=== PATIENT | male | born 1970 | race American Indian/Alaskan Native ===

== ENCOUNTER 2021-08-05 11:55 | Observation (INO) | payer SELFPAY ==
--- NOTE | 2021-08-05 12:08 | Emergency Department Report ---
ED General Adult HPI - General Chief complaint: Medical Clearance Stated complaint: DIALYSIS PORT NOT WORKING PUI?: No Time Seen by Provider: 08/05/21 12:02 Source: patient, EMS Mode of arrival: Stretcher Limitations: No Limitations - History of Present Illness Initial comments: Chief complaint: Catheter not working HPI: This is a 50-year-old male with history of hypertension, end-stage renal disease on hemodialysis Tuesday, CVA, diabetes mellitus who presents to the ED from dialysis clinic. Permacath malfunctioning. Otherwise he has been in his normal state of health. Denies any pain or discomfort. He receives dialysis at [facility] on [facility]. His dry can tender is Dr. Sparrow -: Gradual, This morning Severity scale (0 -10): 0 Consistency: constant Improves with: none Worsens with: none Associated Symptoms: denies other symptoms Treatments Prior to Arrival: other (Attempted dialysis treatment, EMS transport to the ED) - Related Data Home Medications Medication Instructions Recorded Confirmed Last Taken Pravastatin Sodium [Pravastatin] 05/19/13 05/19/13 Unknown cloNIDine [Catapres] 05/19/13 05/19/13 Unknown Previous Rx's Medication Instructions Recorded Last Taken Type Aspirin 325 mg PO QDAY #30 tablet 05/23/13 Unknown Rx Gabapentin 100 mg PO Q8HR #30 capsule 05/23/13 Unknown Rx Hum Insulin NPH/Reg Insulin Hm 20 unit SQ BID #10 ml 05/23/13 Unknown Rx [Humulin 70-30 Pen] Metoprolol [Lopressor TAB] 100 mg PO BID #60 tablet 05/23/13 Unknown Rx NIFEdipine XL [Procardia Xl] 60 mg PO Q12HR #60 tablet 05/23/13 Unknown Rx Allergies Allergy/AdvReac Type Severity Reaction Status Date / Time No Known Allergies Allergy Verified 08/05/21 11:58 ED Review of Systems ROS: Stated complaint: DIALYSIS PORT NOT WORKING Other details as noted in HPI Comment: All other systems reviewed and negative Constitutional: denies: chills, fever, malaise Respiratory: denies: cough, shortness of breath Cardiovascular: denies: chest pain Gastrointestinal: denies: abdominal pain, nausea, vomiting ED Past Medical Hx - Past Medical History Previous Medical History?: Yes Hx Hypertension: Yes Hx Diabetes: Yes Hx Liver Disease: No Hx Renal Disease: Yes Additional medical history: high chol - Surgical History Past Surgical History?: Yes Additional Surgical History: Right chest permacath present - Family History Family history: diabetes, hypertension - Social History Smoking Status: Never Smoker Substance Use Type: None - Medications Home Medications: Home Medications Medication Instructions Recorded Confirmed Last Taken Type Pravastatin Sodium [Pravastatin] 05/19/13 05/19/13 Unknown History cloNIDine [Catapres] 05/19/13 05/19/13 Unknown History Aspirin 325 mg PO QDAY #30 tablet 05/23/13 Unknown Rx Gabapentin 100 mg PO Q8HR #30 capsule 05/23/13 Unknown Rx Hum Insulin NPH/Reg Insulin Hm 20 unit SQ BID #10 ml 05/23/13 Unknown Rx [Humulin 70-30 Pen] Metoprolol [Lopressor TAB] 100 mg PO BID #60 tablet 05/23/13 Unknown Rx NIFEdipine XL [Procardia Xl] 60 mg PO Q12HR #60 tablet 05/23/13 Unknown Rx ED Physical Exam - General Limitations: No Limitations General appearance: alert, in no apparent distress - Head Head exam: Present: atraumatic, normocephalic - Eye Eye exam: Present: normal appearance - ENT ENT exam: Present: mucous membranes moist - Neck Neck exam: Present: normal inspection, full ROM - Respiratory Respiratory exam: Present: normal lung sounds bilaterally, other (Right chest permacath bandage intact no erythema no drainage). Absent: respiratory distress, wheezes, rales, rhonchi - Cardiovascular Cardiovascular Exam: Present: regular rate, normal rhythm, normal heart sounds. Absent: systolic murmur, diastolic murmur, rubs, gallop - GI/Abdominal GI/Abdominal exam: Present: soft, normal bowel sounds. Absent: distended, tenderness, guarding, rebound - Rectal Rectal exam: Present: deferred - Extremities Exam Extremities exam: Present: normal inspection - Neurological Exam Neurological exam: Present: alert, oriented X3 - Psychiatric Psychiatric exam: Present: normal affect, normal mood - Skin Skin exam: Present: warm, dry, intact, normal color. Absent: rash ED Course Vital Signs 08/05/21 11:56 Temperature 98 F Pulse Rate 91 H Blood Pressure 186/89 [Left] O2 Sat by Pulse 16 L Oximetry ED Medical Decision Making - Lab Data Result diagrams: 08/05/21 12:24 08/05/21 12:24 - Medical Decision Making I discussed case with Jammie nurse practitioner for nephrology group she recommended admission for hemodialysis vascular access replacement Critical care attestation.: If time is entered above; I have spent that time in minutes in the direct care of this critically ill patient, excluding procedure time. ED Disposition Clinical Impression: End stage renal disease on dialysis, Problem with dialysis access Disposition: ADMITTED INPATIENT Is pt being admited?: Yes Does the pt Need Aspirin: No Condition: Stable
[2021-08-05 12:41] LABS: Basophils % (Auto) 0.7 % (0.0-1.8); Eosinophils # (Auto) 0.2 K/mm3 (0.0-0.4); Eosinophils % (Auto) 2.7 % (0.0-4.3); Hematocrit 29.4 % (35.5-45.6); Hemoglobin 9.5 gm/dl (11.8-15.2); Lymphocytes # (Auto) 0.5 K/mm3 (1.2-5.4); Lymphocytes % (Auto) 9.8 % (13.4-35.0); Mean Corpuscular HGB Conc 32 % (32-34); Mean Corpuscular Volume 83 fl (84-94); Monocytes # (Auto) 0.4 K/mm3 (0.0-0.8); Monocytes % (Auto) 7.1 % (0.0-7.3); Platelet Count 204 K/mm3 (140-440); Red Blood Count 3.52 M/mm3 (3.65-5.03); Red Cell Distribution Width 14.9 % (13.2-15.2)
[2021-08-05 12:55] LABS: INR 0.96 (0.87-1.13); Partial Thromboplastin Time 43.6 Sec. (24.2-36.6)
[2021-08-05 14:51] LABS: Calcium 9.1 mg/dL (8.4-10.2)
--- NOTE | 2021-08-05 15:22 | Consultation ---
History of Present Illness - Reason for Consult Consult date: 08/05/21 end stage renal disease - History of Present Illness This is a 50 year old man who presents with dialysis access malfunction. Patient usually dialyzes MWF at [facility]. Last HD 08/03. Denies any recent issues with HD, including dizziness, lightheadedness, cramping, chest pain on HD. Has been having sluggish flow per reports due to CVC issues. Went to HD today but unable to start HD due to CVC malfunction Currently, patient denies any issues including dyspnea, edema, access issues, nausea, vomiting, headaches. Past History Past Medical History: ESRD Past Surgical History: No surgical history Social history: no significant social history Family history: no significant family history Medications and Allergies Allergies Allergy/AdvReac Type Severity Reaction Status Date / Time No Known Allergies Allergy Verified 08/05/21 11:58 Home Medications Medication Instructions Recorded Confirmed Last Taken Type Pravastatin Sodium [Pravastatin] 05/19/13 05/19/13 Unknown History cloNIDine [Catapres] 05/19/13 05/19/13 Unknown History Aspirin 325 mg PO QDAY #30 tablet 05/23/13 Unknown Rx Gabapentin 100 mg PO Q8HR #30 capsule 05/23/13 Unknown Rx Hum Insulin NPH/Reg Insulin Hm 20 unit SQ BID #10 ml 05/23/13 Unknown Rx [Humulin 70-30 Pen] Metoprolol [Lopressor TAB] 100 mg PO BID #60 tablet 05/23/13 Unknown Rx NIFEdipine XL [Procardia Xl] 60 mg PO Q12HR #60 tablet 05/23/13 Unknown Rx Review of Systems All systems: negative (as per HPI) Exam - Vital Signs Vital signs: Vital Signs Temp Pulse BP Pulse Ox 98 F 91 H 186/89 16 L 08/05/21 11:56 08/05/21 11:56 08/05/21 11:56 08/05/21 11:56 - Physical Exam Narrative exam: Constitutional: no acute distress Head: NC/AT Neck: supple Lungs: clear to auscultation CV: RRR, no M/R/G Abdomen: soft, non-tender, bowel sounds present Back: nontender Extremities: no edema, pulses WNL Skin: intact Neuro: no focal deficits, alert and oriented x4 Results - Lab Results 08/05/21 12:24 08/05/21 12:24 Most recent lab results Calcium 9.1 mg/dL (8.4-10.2) 08/05/21 12:24 Assessment and Plan This is a 50 year old man who presents with CVC malfunction # ESRD: HD after CVC replacement, no emergent indication for HD noted per labs, volume status - daily labs - renally dose meds - avoid nephrotoxins - renal diet - verbal consent obtained for HD # CVC Malfunction: appreciate vascular assistance # Anemia: last hemoglobin 9.5 # HTN: UF as tolerated. BP high but improving # Secondary Hyperparathyroidism: continue home binders as needed, vitamin D analogs prn
[2021-08-05] MEDS ORDERED: MORPHINE 2 MG/1 ML INJ IV PRN (21:21)
[2021-08-05] MEDS ORDERED: ONDANSETRON 4 MG/2 ML INJ IV PRN (21:21)
[2021-08-05] MEDS ORDERED: oxyCODONE /ACETAMINOPHEN 5-325MG TAB PO PRN (21:21)
[2021-08-05] MEDS ORDERED: ACETAMINOPHEN 325 MG TAB PO PRN (21:21)
--- NOTE | 2021-08-05 21:21 | History and Physical Report ---
History of Present Illness Date of examination: 08/05/21 Date of admission: 08/05/2021 Chief complaint: Permacath malfunction History of present illness: 50-year-old F male with history of hypertension and recently started on hemodialysis about 2 weeks ago comes in for malfunction of his permacath. Patient is due for hemodialysis on Wednesdays and Fridays. Patient also has diabetes. Patient was sent here for exchange of permacath because of his malfunction. Otherwise patient is asymptomatic. No increasing shortness of breath. No chest pain. No fever or chills. - Past Medical History --Previous Medical History?: Yes --Hypertension: Yes --Diabetes: Yes --Renal Disease: Yes --Additional medical history: high chol - Surgical History --Past Surgical History?: Yes --Additional Surgical History: Right chest permacath present - Family History --Family history: diabetes, hypertension - Social History --Smoking Status: Never Smoker --Substance Use Type: None - Medications --Home Medications: Home Medications Medication Instructions Recorded Confirmed Last Taken Type Pravastatin Sodium [Pravastatin] 05/19/13 05/19/13 Unknown History cloNIDine [Catapres] 05/19/13 05/19/13 Unknown History Aspirin 325 mg PO QDAY #30 tablet 05/23/13 Unknown Rx Gabapentin 100 mg PO Q8HR #30 capsule 05/23/13 Unknown Rx Hum Insulin NPH/Reg Insulin Hm 20 unit SQ BID #10 ml 05/23/13 Unknown Rx [Humulin 70-30 Pen] Metoprolol [Lopressor TAB] 100 mg PO BID #60 tablet 05/23/13 Unknown Rx NIFEdipine XL [Procardia Xl] 60 mg PO Q12HR #60 tablet 05/23/13 Unknown Rx Review of Systems ROS: Stated complaint: DIALYSIS PORT NOT WORKING Other details as noted in HPI Comment: All other systems reviewed and negative Constitutional: denies: chills, fever, malaise Respiratory: denies: cough, shortness of breath Cardiovascular: denies: chest pain Gastrointestinal: denies: abdominal pain, nausea, vomiting Medications and Allergies Allergies Allergy/AdvReac Type Severity Reaction Status Date / Time No Known Allergies Allergy Verified 08/05/21 11:58 Home Medications Medication Instructions Recorded Confirmed Last Taken Type Pravastatin Sodium [Pravastatin] 40 mg PO HS 05/19/13 08/06/21 Unknown History cloNIDine [Catapres] 0.2 mg PO BID 05/19/13 08/06/21 Unknown History Aspirin 325 mg PO QDAY #30 tablet 05/23/13 08/06/21 Unknown Rx Gabapentin 100 mg PO Q8HR #30 capsule 05/23/13 08/06/21 Unknown Rx Hum Insulin NPH/Reg Insulin Hm 20 unit SQ BID #10 ml 05/23/13 08/06/21 Unknown Rx [Humulin 70-30 Pen] Metoprolol [Lopressor TAB] 100 mg PO BID #60 tablet 05/23/13 08/06/21 Unknown Rx NIFEdipine XL [Procardia Xl] 60 mg PO Q12HR #60 tablet 05/23/13 08/06/21 Unknown Rx Exam - Constitutional Vitals: Temp Pulse Resp BP Pulse Ox 98 F 91 H 157/90 100 08/05/21 11:56 08/05/21 11:56 08/05/21 18:31 08/05/21 18:31 General appearance: Present: no acute distress, well-nourished - EENT Eyes: Present: PERRL ENT: hearing intact, clear oral mucosa - Neck Neck: Present: supple, normal ROM - Respiratory Respiratory effort: normal Respiratory: bilateral: CTA - Cardiovascular Heart rate: 78 Rhythm: regular Heart Sounds: Present: S1 & S2. Absent: rub, click - Extremities Extremities: pulses symmetrical, No edema Peripheral Pulses: within normal limits - Abdominal General gastrointestinal: Present: soft, non-tender, non-distended, normal bowel sounds Male genitourinary: Present: normal - Integumentary Integumentary: Present: clear, warm, dry - Musculoskeletal Musculoskeletal: gait normal, strength equal bilaterally - Psychiatric Psychiatric: appropriate mood/affect, intact judgment & insight - Neurologic Neurologic: CNII-XII intact, moves all extremities Results - Labs CBC & Chem 7: 08/05/21 12:24 08/06/21 06:42 Labs: Laboratory Last Values WBC 5.5 K/mm3 (4.5-11.0) 08/05/21 12:24 RBC 3.52 M/mm3 (3.65-5.03) L 08/05/21 12:24 Hgb 9.5 gm/dl (11.8-15.2) L 08/05/21 12:24 Hct 29.4 % (35.5-45.6) L 08/05/21 12:24 MCV 83 fl (84-94) L 08/05/21 12:24 MCH 27 pg (28-32) L 08/05/21 12:24 MCHC 32 % (32-34) 08/05/21 12:24 RDW 14.9 % (13.2-15.2) 08/05/21 12:24 Plt Count 204 K/mm3 (140-440) 08/05/21 12:24 Lymph % (Auto) 9.8 % (13.4-35.0) L 08/05/21 12:24 Beckham % (Auto) 7.1 % (0.0-7.3) 08/05/21 12:24 Eos % (Auto) 2.7 % (0.0-4.3) 08/05/21 12: Baso % (Auto) 0.7 % (0.0-1.8) 08/05/21 12:24 Lymph # (Auto) 0.5 K/mm3 (1.2-5.4) L 08/05/21 12:24 Beckham # (Auto) 0.4 K/mm3 (0.0-0.8) 08/05/21 12:24 Eos # (Auto) 0.2 K/mm3 (0.0-0.4) 08/05/21 12: Baso # (Auto) 0.0 K/mm3 (0.0-0.1) 08/05/21 12:24 Seg Neutrophils % 79.7 % (40.0-70.0) H 08/05/21 12:24 Seg Neutrophils # 4.4 K/mm3 (1.8-7.7) 08/05/21 12:24 PT 10.0 Sec. (12.2-14.9) L 08/05/21 12:24 INR 0.96 (0.87-1.13) 08/05/21 12:24 APTT 43.6 Sec. (24.2-36.6) H 08/05/21 12:24 Sodium 139 mmol/L (137-145) 08/05/21 12:24 Potassium 4.3 mmol/L (3.6-5.0) 08/05/21 12:24 Chloride 103.0 mmol/L (98-107) 08/05/21 12:24 Carbon Dioxide 22 mmol/L (22-30) 08/05/21 12:24 Anion Gap 18 mmol/L 08/05/21 12:24 BUN 60 mg/dL (9-20) H 08/05/21 12:24 Creatinine 5.0 mg/dL (0.8-1.3) H 08/05/21 12:24 Estimated GFR 15 ml/min 08/05/21 12:24 BUN/Creatinine Ratio 12 % 08/05/21 12:24 Glucose 167 mg/dL (75-100) H 08/05/21 12:24 Calcium 9.1 mg/dL (8.4-10.2) 08/05/21 12:24 Assessment and Plan Advance Directives: Yes (Full code) VTE prophylaxis?: Chemical Plan of care discussed with patient/family: Yes - Patient Problems (1) Problem with dialysis access Current Visit: Yes Status: Acute Qualifiers: Encounter type: initial encounter Qualified Code(s): T82.898A - Other specified complication of vascular prosthetic devices, implants and grafts, initial encounter Plan to address problem: Permacath to be replaced Malfunctioning permacath Vascular surgery consulted Nephrology consulted (2) End stage renal disease on dialysis Current Visit: Yes Status: Chronic Plan to address problem: Continue hemodialysis as per schedule after the permacath was replaced Nephrology consulted (3) Hypertension Current Visit: Yes Status: Chronic Qualifiers: Hypertension type: primary hypertension Qualified Code(s): I10 - Essential (primary) hypertension Plan to address problem: Continue antihypertensives and adjust medications (4) IDDM (insulin dependent diabetes mellitus) Current Visit: Yes Status: Chronic Plan to address problem: Continue oral home insulin and coverage Check hemoglobin A1c (5) DVT prophylaxis Current Visit: Yes Status: Acute Plan to address problem: 1 heparin and GI prophylaxis (6) Advance care planning Current Visit: Yes Status: Acute Plan to address problem: Disease education conducted, care plan discussed, diagnosis discussed, prognosis discussed. Patient is full code. Patient acknowledged understanding and agreement with care plan. +30 minutes.
[2021-08-05] MEDS ORDERED: REG INSULIN SQ SCH (22:00)
[2021-08-05] MEDS ORDERED: HUM INSULIN NPH SQ SCH (22:00)
[2021-08-05] MEDS: GABAPENTIN 100 MG CAP PO SCH (23:09)
[2021-08-05] MEDS: METOPROLOL TARTRATE 100 MG TAB PO SCH (23:09)
[2021-08-05] MEDS: cloNIDine 0.2 MG TAB PO SCH (23:09)
[2021-08-05] MEDS: ASPIRIN 325 MG TAB PO SCH (23:10)
[2021-08-05] MEDS: HEPARIN 5,000 UNIT/1 ML VIAL SUB-Q SCH (23:10)
[2021-08-05] MEDS: PRAVASTATIN 40 MG TAB PO SCH (23:10)
[2021-08-06] MEDS: NIFEdipine XL 60 MG TAB PO SCH ×2 (05:07→19:44)
[2021-08-06] MEDS: GABAPENTIN 100 MG CAP PO SCH ×2 (05:07→14:01)
[2021-08-06] MEDS: cloNIDine 0.2 MG TAB PO SCH ×2 (05:09→14:01)
[2021-08-06] MEDS ORDERED: HEPARIN/NS 5000 UNIT/500ML 1,000 ML IR ONE (08:27)
[2021-08-06] MEDS ORDERED: HEPARIN 10,000 UNITS/10 ML VIAL ONE (08:27)
[2021-08-06] MEDS ORDERED: LIDOCAINE (1%) 10 MG/1 ML VIAL 20 ML MDV ONE (08:27)
[2021-08-06] MEDS ORDERED: ceFAZolin/Water 2 GM/20 ML 2 GM/20 ML SYRINGE IV ONE (08:27)
[2021-08-06] MEDS ORDERED: MIDAZOLAM 2 MG/2 ML INJ ONE (08:28)
[2021-08-06] MEDS ORDERED: fentaNYL 100 MCG/2 ML INJ ONE (08:28)
[2021-08-06] MEDS ORDERED: SODIUM CHLORIDE 0.9% 250ML 250 ML ONE (08:50)
[2021-08-06] MEDS ORDERED: HEPARIN/NS 5000 UNIT/500ML 500 ML IR ONE (09:20)
--- NOTE | 2021-08-06 09:25 | Operative Report ---
Operative Report Operative Report: Exam: Fluoroscopic guided exchange of tunneled hemodialysis catheter, central venogram, Clinical indication: Patient with a history of end-stage renal disease on hemodialysis through a right chest wall tunneled hemodialysis catheter, catheter not working in outpatient setting Date: 08/06/2021 Procedure: Following an explanation of the risk, benefits and alternatives; written informed consent was obtained. The patient was brought to the angiographic suite placed in supine position on the examination table. Initial fluoroscopic images of the chest demonstrated an indwelling tunneled hemodialysis catheter that appears to terminate at the cavoatrial junction. The patient's right chest wall was prepped and draped in the usual sterile fashion. 2% lidocaine was used for anesthesia. Attempts to aspirate either port were unsuccessful. A 0.035 guidewire was then advanced through the indwelling catheter and under fluoroscopy advanced to the IVC to document intravenous positioning and for anchoring. The catheter was then removed intact. A 10 Norwegian sheath was then advanced over the guidewire and contrast injected through the 10 Norwegian sheath. This demonstrated the soft tissue track and visualized portions of the superior vena cava appear to be patent however, there was poor visualization of the distal superior vena cava and a 5 Norwegian vertebral catheter was then advanced through the sheath through the soft tissue tract. Contrast was injected through the vertebral catheter. This demonstrates no significant fibrin sheath. It appears that the catheter had been withdrawn proximally causing occlusion secondary to tissue adjacent to the aspiration ports. A new Bard glidepath 23 cm glidepath tunneled hemodialysis catheter was then advanced over the guidewire under fluoroscopy and positioned with the tip in the proximal right atrium. The guidewire and trocar were removed. Both ports flushed and aspirated easily and were then locked with appropriate volumes of heparin. The catheter exit site was approximated using 2-0 Ethilon suture which was also used to anchor the catheter. Dermabond was also applied. A sterile dressing was applied. The patient tolerated the procedure well. There were no immediate post procedure complications. Conscious sedation was performed under the guidance of radiologic nursing. Continuous cardiopulmonary monitoring was utilized. Impression: 1) Fluoroscopic guided exchange of tunneled hemodialysis catheter with placement of the tip of the catheter at the proximal right atrium. 2) Central venogram demonstrating no significant fibrin sheath.
--- NOTE | 2021-08-06 09:28 | Consultation ---
History of Present Illness - Reason for Consult Consult date: 08/06/21 Malfunctioning dialysis catheter - History of Present Illness Patient with a history of end-stage renal disease on hemodialysis through a right chest wall tunneled hemodialysis catheter that stopped functioning yesterday during dialysis. The patient subsequently presented to the emergency department. He has no other significant complaints of any pain. Past History Past Medical History: dialysis, ESRD Past Surgical History: No surgical history Social history: no significant social history Family history: no significant family history Medications and Allergies Allergies Allergy/AdvReac Type Severity Reaction Status Date / Time No Known Allergies Allergy Verified 08/05/21 11:58 Home Medications Medication Instructions Recorded Confirmed Last Taken Type Pravastatin Sodium [Pravastatin] 40 mg PO HS 05/19/13 08/06/21 Unknown History cloNIDine [Catapres] 0.2 mg PO BID 05/19/13 08/06/21 Unknown History Aspirin 325 mg PO QDAY #30 tablet 05/23/13 08/06/21 Unknown Rx Gabapentin 100 mg PO Q8HR #30 capsule 05/23/13 08/06/21 Unknown Rx Hum Insulin NPH/Reg Insulin Hm 20 unit SQ BID #10 ml 05/23/13 08/06/21 Unknown Rx [Humulin 70-30 Pen] Metoprolol [Lopressor TAB] 100 mg PO BID #60 tablet 05/23/13 08/06/21 Unknown Rx NIFEdipine XL [Procardia Xl] 60 mg PO Q12HR #60 tablet 05/23/13 08/06/21 Unknown Rx Active Meds: Active Medications Acetaminophen (Acetaminophen 325 Mg Tab) 650 mg PO Q4H PRN PRN Reason: Pain MILD(1-3)/Fever >100.5/JUAN Aspirin (Aspirin 325 Mg Tab) 325 mg PO QDAY [facility] Last Admin: 08/05/21 23:10 Dose: 325 mg Clonidine HCl (Clonidine 0.2 Mg Tab) 0.2 mg PO Q8H [facility] Last Admin: 08/06/21 05:09 Dose: 0.2 mg Gabapentin (Gabapentin 100 Mg Cap) 100 mg PO Q8HR [facility] Last Admin: 08/06/21 05:07 Dose: 100 mg Heparin Sodium (Porcine) (Heparin 5,000 Unit/1 Ml Vial) 5,000 unit SUB-Q Q12HR [facility] Last Admin: 08/05/21 23:10 Dose: 5,000 unit Insulin Human Isoph/Insulin Regular (Insulin Nph/Regular 70/30 Inj) 20 unit SUB-Q BIDDIAB [facility] Insulin Human Lispro (Insulin Lispro 100 Unit/Ml) 0 unit SUB-Q ACHS [facility]; Protocol Metoprolol Tartrate (Metoprolol Tartrate 100 Mg Tab) 100 mg PO BID [facility] Last Admin: 08/05/21 23:09 Dose: 100 mg Morphine Sulfate (Morphine 2 Mg/1 Ml Inj) 2 mg IV Q4H PRN PRN Reason: Pain, Moderate (4-6) Nifedipine (Nifedipine Xl 60 Mg Tab) 60 mg PO Q12H [facility] Last Admin: 08/06/21 05:07 Dose: 60 mg Ondansetron HCl (Ondansetron 4 Mg/2 Ml Inj) 4 mg IV Q8H PRN PRN Reason: Nausea And Vomiting Oxycodone/Acetaminophen (Oxycodone /Acetaminophen 5-325mg Tab) 1 tab PO Q6H PRN PRN Reason: Pain, Moderate (4-6) Pravastatin Sodium (Pravastatin 40 Mg Tab) 40 mg PO QDAY [facility] Last Admin: 08/05/21 23:10 Dose: 40 mg Sodium Chloride (Sodium Chloride 0.9% 10 Ml Flush Syringe) 10 ml IV BID [facility] Last Admin: 08/05/21 23:38 Dose: 10 ml Sodium Chloride (Sodium Chloride 0.9% 10 Ml Flush Syringe) 10 ml IV PRN PRN PRN Reason: LINE FLUSH Review of Systems All systems: negative Exam - Constitutional Vitals: Temp Pulse Resp BP Pulse Ox 98.1 F 86 18 165/94 93 08/06/21 04:33 08/06/21 05:09 08/06/21 04:33 08/06/21 05:09 08/06/21 04:33 General appearance: Present: no acute distress - EENT Eyes: Present: EOM intact ENT: hearing intact - Neck Neck: Present: supple, normal ROM - Respiratory Respiratory effort: normal - Abdominal General gastrointestinal: Present: deferred Male genitourinary: Present: deferred - Rectal Rectal Exam: deferred - Psychiatric Psychiatric: appropriate mood/affect, cooperative Results - Labs CBC & Chem 7: 08/05/21 12:24 08/06/21 06:42 Labs: Abnormal lab results 08/05/21 08/05/21 08/05/21 Range/Units 12:24 12:24 12:24 RBC 3.52 L (3.65-5.03) M/mm3 Hgb 9.5 L (11.8-15.2) gm/dl Hct 29.4 L (35.5-45.6) % MCV 83 L (84-94) fl MCH 27 L (28-32) pg Lymph % (Auto) 9.8 L (13.4-35.0) % Lymph # (Auto) 0.5 L (1.2-5.4) K/mm3 Seg Neutrophils % 79.7 H (40.0-70.0) % PT 10.0 L (12.2-14.9) Sec. APTT 43.6 H (24.2-36.6) Sec. BUN 60 H (9-20) mg/dL Creatinine 5.0 H (0.8-1.3) mg/dL Glucose 167 H (75-100) mg/dL POC Glucose (70-105) mg/dL 08/06/21 08/06/21 Range/Units 06:42 07:41 RBC (3.65-5.03) M/mm3 Hgb (11.8-15.2) gm/dl Hct (35.5-45.6) % MCV (84-94) fl MCH (28-32) pg Lymph % (Auto) (13.4-35.0) % Lymph # (Auto) (1.2-5.4) K/mm3 Seg Neutrophils % (40.0-70.0) % PT (12.2-14.9) Sec. APTT (24.2-36.6) Sec. BUN 64 H (9-20) mg/dL Creatinine 5.3 H (0.8-1.3) mg/dL Glucose 170 H (75-100) mg/dL POC Glucose 151 H (70-105) mg/dL Assessment and Plan Plan to take patient to [facility] today for exchange and evaluation of patient's indwelling tunneled hemodialysis catheter. The patient will ultimately once he acquires insurance will require creation of longer access per nephrology.
--- NOTE | 2021-08-06 09:38 | Event Note ---
Date: 08/06/21 Patient in lab tester at time of rounds. Labs, vitals reviewed. Patient can return to HD unit tomorrow at [facility] for usual HD (I will be rounding there tomorrow and see patient there), no need to remain inpatient for dialysis after CVC replaced. If there are any clinical concerns however, please call me at [phone]
[2021-08-06] MEDS: ASPIRIN 325 MG TAB PO SCH (10:00)
[2021-08-06] MEDS: PRAVASTATIN 40 MG TAB PO SCH (10:00)
[2021-08-06] MEDS: HEPARIN 5,000 UNIT/1 ML VIAL SUB-Q SCH (10:00)
[2021-08-06] MEDS: METOPROLOL TARTRATE 100 MG TAB PO SCH (10:01)
[2021-08-06] MEDS: INSULIN NPH/REGULAR 70/30 INJ SUB-Q SCH ×2 (10:35→19:44)
[2021-08-06] MEDS: INSULIN LISPRO 100 UNIT/ML SUB-Q SCH ×2 (13:57→18:17)
[2021-08-06 18:43] VITALS: BP 156/81
--- NOTE | 2021-08-06 20:09 | Discharge Summary ---
Providers - Providers Date of Admission: 08/05/21 21:21 Date of discharge: 08/06/21 Attending physician: ALESSIA TURK 08/05/21 14:23 Consult to Physician [CONS] Stat Comment: Consulting Provider: RYLEE OLIVER Physician Instructions: Reason For Exam: ESRD 08/05/21 15:04 Consult to Physician [CONS] Stat Comment: Consulting Provider: BAYLEE DOOLEY Physician Instructions: Reason For Exam: permacath exchange Primary care physician: GEODETIC SURVEYOR Hospitalization Condition: Stable Hospital course: History of present illness: 50-year-old F male with history of hypertension and recently started on hemodialysis about 2 weeks ago comes in for malfunction of his permacath. Patient is due for hemodialysis on Wednesdays and Fridays. Patient also has diabetes. Patient was sent here for exchange of permacath because of his malfunction. Otherwise patient is asymptomatic. No increasing shortness of breath. No chest pain. No fever or chills. Assessment and Plan Advance Directives: Yes (Full code) VTE prophylaxis?: Chemical Plan of care discussed with patient/family: Yes - Patient Problems (1) Problem with dialysis access Current Visit: Yes Status: Acute Permacath replaced by Dr. Thom Corbett ready for hemodialysis (2) End stage renal disease on dialysis Current Visit: Yes Status: Chronic Plan to address problem: Patient to go to [facility] tomorrow for hemodialysis (3) Hypertension Current Visit: Yes Status: Chronic Qualifiers: Hypertension type: primary hypertension Qualified Code(s): I10 - Essential (primary) hypertension Plan to address problem: Blood pressure well controlled (4) IDDM (insulin dependent diabetes mellitus) Current Visit: Yes Status: Chronic Plan to address problem: Blood glucose levels are reasonable (5) DVT prophylaxis Current Visit: Yes Status: Acute Plan to address problem: 1 heparin and GI prophylaxis (6) Advance care planning Current Visit: Yes Status: Acute Plan to address problem: Disease education conducted, care plan discussed, diagnosis discussed, prognosis discussed. Patient is full code. Patient acknowledged understanding and agreement with care plan. +30 minutes. Disposition: HOME / SELF CARE / HOMELESS Final Discharge Diagnosis (Prints w/discharge instructions): Permacath malfunction. End-stage renal disease on hemodialysis. Hypertension. Insulin- dependent diabetes. Obesity Time spent for discharge: 35 minutes - Discharge Diagnoses (1) Problem with dialysis access Status: Acute Qualifiers: Encounter type: initial encounter Qualified Code(s): T82.898A - Other specified complication of vascular prosthetic devices, implants and grafts, initial encounter (2) End stage renal disease on dialysis Status: Chronic (3) Hypertension Status: Chronic Qualifiers: Hypertension type: primary hypertension Qualified Code(s): I10 - Essential (primary) hypertension (4) IDDM (insulin dependent diabetes mellitus) Status: Chronic (5) DVT prophylaxis Status: Acute (6) Advance care planning Status: Acute Core Measure Documentation - Palliative Care Palliative Care/ Comfort Measures: Not Applicable - Core Measures Any of the following diagnoses?: none Exam - Constitutional Vitals: Temp Pulse Resp BP Pulse Ox 97.2 F L 69 18 156/81 95 08/06/21 17:29 08/06/21 17:29 08/06/21 17:29 08/06/21 17:29 08/06/21 17:29 General appearance: Present: no acute distress, well-nourished - EENT Eyes: Present: PERRL ENT: hearing intact, clear oral mucosa - Neck Neck: Present: supple, normal ROM - Respiratory Respiratory effort: normal Respiratory: bilateral: CTA - Cardiovascular Rhythm: regular Heart Sounds: Present: S1 & S2. Absent: rub, click - Extremities Extremities: pulses symmetrical, No edema Peripheral Pulses: within normal limits - Abdominal General gastrointestinal: Present: soft, non-tender, non-distended, normal bowel sounds Male genitourinary: Present: normal - Integumentary Integumentary: Present: clear, warm, dry - Musculoskeletal Musculoskeletal: gait normal, strength equal bilaterally - Psychiatric Psychiatric: appropriate mood/affect, intact judgment & insight - Neurologic Neurologic: CNII-XII intact, moves all extremities Plan Activity: no restrictions Diet: renal Follow up with: HOLLIS HARRIS MD [Primary Care Provider] - 3-5 Days RYLEE OLIVER MD [Staff Physician] - 7 Days
== END 2021-08-06 22:00 | disposition home or self-care (01) ==
LOC: ED 11:55 → 3A 21:21
PROVIDERS: ADMIT Internal Medicine; ATTEND Internal Medicine
DX: T82.41XA Breakdown (mechanical) of vascular dialysis catheter, initial encounter (principal); T82.898A Other specified complication of vascular prosthetic devices, implants and grafts, initial encounter; I12.0 Hypertensive chronic kidney disease with stage 5 chronic kidney disease or end stage renal disease; N18.6 End stage renal disease; E11.22 Type 2 diabetes mellitus with diabetic chronic kidney disease; D63.1 Anemia in chronic kidney disease; E21.3 Hyperparathyroidism, unspecified; E78.00 Pure hypercholesterolemia, unspecified; Z79.899 Other long term (current) drug therapy; Z99.2 Dependence on renal dialysis; Z98.890 Other specified postprocedural states; Z79.4 Long term (current) use of insulin; Z79.82 Long term (current) use of aspirin
CPT/HCPCS: 36415; 36581; 77001; 80048; 82962; 85025; 85610; 85730; 96372; 99284; C1750; C1769; G0378; J0690; J1644; J2250; J3010; J3490; J7050; Q0177; Q9967; J1815

== ENCOUNTER 2021-10-02 12:24 | Inpatient (IN) | payer OTHER ==
--- NOTE | 2021-10-02 12:44 | Emergency Department Report ---
HPI - General Chief Complaint: Tube Replacement Time Seen by Provider: 10/02/21 12:31 - HPI HPI: Room 4 The patient is a 50-year-old male presenting with a chief complaint of nonfunctioning dialysis catheter. Patient has a history of end-stage renal di sease and receives dialysis every Tuesday. Patient was last dialyzed 2 days ago and when he presented for dialysis today he was informed that his catheter was not working. The patient was subsequently sent to the ED for further evaluation. Patient denies any complaints stating he feels okay currently. ED Past Medical Hx - Past Medical History Hx Hypertension: Yes Hx Diabetes: Yes Hx Renal Disease: Yes Additional medical history: high chol - Surgical History Additional Surgical History: Right chest permacath present - Family History Family history: no significant - Social History Smoking Status: Never Smoker Substance Use Type: None (Denies illicit drug use) - Medications Home Medications: Home Medications Medication Instructions Recorded Confirmed Last Taken Type Pravastatin Sodium [Pravastatin] 40 mg PO HS 05/19/13 10/02/21 10/02/21 History cloNIDine [Catapres] 0.2 mg PO BID 05/19/13 10/02/21 10/02/21 History Aspirin 325 mg PO QDAY #30 tablet 05/23/13 10/02/21 10/02/21 Rx Hum Insulin NPH/Reg Insulin Hm 20 unit SQ BID #10 ml 05/23/13 10/02/21 10/02/21 Rx [Humulin 70-30 Pen] Metoprolol [Lopressor TAB] 100 mg PO BID #60 tablet 05/23/13 10/02/21 10/02/21 Rx NIFEdipine XL [Procardia Xl] 60 mg PO Q12HR #60 tablet 05/23/13 10/02/21 10/02/21 Rx ED Review of Systems ROS: Stated complaint: DIALYSIS PORT BLOCKED Other details as noted in HPI Constitutional: no symptoms reported Eyes: denies: eye pain ENT: denies: throat pain Respiratory: no symptoms reported Cardiovascular: denies: chest pain Endocrine: no symptoms reported Gastrointestinal: denies: abdominal pain Genitourinary: denies: testicular pain Musculoskeletal: denies: back pain Neurological: denies: headache Physical Exam - Physical Exam Vital Signs: Vital Signs 10/02/21 12:29 Temperature 97.6 F Pulse Rate 78 Respiratory 16 Rate Blood Pressure 179/86 [Right] O2 Sat by Pulse 100 Oximetry Physical Exam: GENERAL: The patient is well-developed well-nourished male lying on stretcher not appearing to be in acute distress. [] HEENT: Normocephalic. Atraumatic. Extraocular motions are intact. Patient has moist mucous membranes. NECK: Supple. Trachea midline CHEST/LUNGS: Clear to auscultation. There is no respiratory distress noted. HEART/CARDIOVASCULAR: Regular. There is no tachycardia. There is no gallop rub or murmur. ABDOMEN: Abdomen is soft, nontender. Patient has normal bowel sounds. There is no abdominal distention. SKIN: There is no rash. There is no edema. There is no diaphoresis. NEURO: The patient is awake, alert, and oriented. The patient is cooperative. The patient has no focal neurologic deficits. The patient has normal speech. GCS 15 MUSCULOSKELETAL:There is no evidence of acute injury. ED Course Vital Signs 10/02/21 12:29 Temperature 97.6 F Pulse Rate 78 Respiratory 16 Rate Blood Pressure 179/86 [Right] O2 Sat by Pulse 100 Oximetry - Consultations Consultation #1: 10/02/21 12:40 Nephrology paged-Case discussed with Dr. Scott. Request to see if vascular is able to resolve a catheter issue today otherwise patient should be admitted to the hospital 10/02/21 14:19 Case discussed with vascular surgeon Dr. Tomas- unlikely to be able to unclog Vas-Cath today given pending cases. Will admit to the hospitalist ED Medical Decision Making - Lab Data Result diagrams: 10/02/21 13:00 10/02/21 13:00 Laboratory Tests 10/02/21 10/02/21 10/02/21 13:00 13:00 13:00 WBC 5.0 RBC 3.85 Hgb 11.1 L Hct 33.5 L MCV 87 MCH 29 MCHC 33 RDW 15.7 H Plt Count 194 Lymph % (Auto) 9.4 L [place] % (Auto) 8.4 H Eos % (Auto) 3.6 Baso % (Auto) 1.2 Lymph # (Auto) 0.5 L [place] # (Auto) 0.4 Eos # (Auto) 0.2 Baso # (Auto) 0.1 Seg Neutrophils % 77.4 H Seg Neutrophils # 3.8 PT 13.8 INR 0.96 Sodium 138 Potassium 4.1 Chloride 100.7 Carbon Dioxide 24 Anion Gap 17 BUN 30 H Creatinine 4.9 H Estimated GFR 15 BUN/Creatinine Ratio 6 Glucose 194 H Calcium 9.2 - Differential Diagnosis Nonfunctioning Vas-Cath Critical care attestation.: If time is entered above; I have spent that time in minutes in the direct care of this critically ill patient, excluding procedure time. ED Disposition Clinical Impression: Problem with dialysis access, End stage renal disease on dialysis Disposition: ADMITTED INPATIENT Is pt being admited?: Yes Does the pt Need Aspirin: No Condition: Fair Time of Disposition: 14:20 (Care transferred to hospitalist (Dr. Bass))
[2021-10-02 13:16] LABS: Basophils # (Auto) 0.1 K/mm3 (0.0-0.1); Basophils % (Auto) 1.2 % (0.0-1.8); Eosinophils # (Auto) 0.2 K/mm3 (0.0-0.4); Eosinophils % (Auto) 3.6 % (0.0-4.3); Hematocrit 33.5 % (35.5-45.6); Hemoglobin 11.1 gm/dl (11.8-15.2); Lymphocytes # (Auto) 0.5 K/mm3 (1.2-5.4); Lymphocytes % (Auto) 9.4 % (13.4-35.0); Mean Corpuscular HGB Conc 33 % (32-34); Mean Corpuscular Volume 87 fl (84-94); Monocytes # (Auto) 0.4 K/mm3 (0.0-0.8); Monocytes % (Auto) 8.4 % (0.0-7.3); Platelet Count 194 K/mm3 (140-440); Red Blood Count 3.85 M/mm3 (3.65-5.03); Red Cell Distribution Width 15.7 % (13.2-15.2)
[2021-10-02 13:27] LABS: INR 0.96 (0.87-1.13)
[2021-10-02 13:49] LABS: Calcium 9.2 mg/dL (8.4-10.2)
--- NOTE | 2021-10-02 14:33 | Consultation ---
History of Present Illness - Reason for Consult Consult date: 10/02/21 NonFunctioning Permacath Requesting physician: JEANINE CHILDRESS - History of Present Illness The patient is a 50-year-old male with a history of ESRD who is on dialysis through a right internal jugular permacath. He presents to the Emergency Department with complaints of a non-functioning permacath. He states he underwent dialysis on Tuesday, without complications, however when he presented today they were unable to perform dialysis. He denies shortness of breath, fever, or chest pain. He has no additional complaints at this time. Past History Past Medical History: diabetes, dialysis, ESRD, hypertension, hyperlipidemia, stroke Past Surgical History: Other (permacath insertion) Social history: no significant social history Family history: no significant family history Medications and Allergies Allergies Allergy/AdvReac Type Severity Reaction Status Date / Time No Known Allergies Allergy Verified 08/05/21 11:58 Home Medications Medication Instructions Recorded Confirmed Last Taken Type Pravastatin Sodium [Pravastatin] 40 mg PO HS 05/19/13 10/02/21 10/02/21 History cloNIDine [Catapres] 0.2 mg PO BID 05/19/13 10/02/21 10/02/21 History Aspirin 325 mg PO QDAY #30 tablet 05/23/13 10/02/21 10/02/21 Rx Hum Insulin NPH/Reg Insulin Hm 20 unit SQ BID #10 ml 05/23/13 10/02/21 10/02/21 Rx [Humulin 70-30 Pen] Metoprolol [Lopressor TAB] 100 mg PO BID #60 tablet 05/23/13 10/02/21 10/02/21 Rx NIFEdipine XL [Procardia Xl] 60 mg PO Q12HR #60 tablet 05/23/13 10/02/2110/02 Rx Review of Systems All systems: negative Exam - Constitutional Vitals: Temp Pulse Resp BP Pulse Ox 97.8 F 71 26 H 165/87 100 10/02/21 13:06 10/02/21 13:23 10/02/21 13:23 10/02/21 13:23 10/02/21 13:23 General appearance: Present: no acute distress - Neck Neck: Present: other (right IJ permacath is without overt sign of infection) - Cardiovascular Rhythm: regular - Extremities Extremities: no ischemia Results - Labs CBC & Chem 7: 10/02/21 13:00 10/02/21 13:00 Labs: Abnormal lab results 10/02/21 10/02/21 Range/Units 13:00 13:00 Hgb 11.1 L (11.8-15.2) gm/dl Hct 33.5 L (35.5-45.6) % RDW 15.7 H (13.2-15.2) % Lymph % (Auto) 9.4 L (13.4-35.0) % [place] % (Auto) 8.4 H (0.0-7.3) % Lymph # (Auto) 0.5 L (1.2-5.4) K/mm3 Seg Neutrophils % 77.4 H (40.0-70.0) % BUN 30 H (9-20) mg/dL Creatinine 4.9 H (0.8-1.3) mg/dL Glucose 194 H (75-100) mg/dL Assessment and Plan Patient with non-functioning permacath I was able to flush each port, without resistance, however I was unable to aspirate from either port. He will require a permacath exchange, however due to staffing and his insurance status, he will have to be admitted for the procedure. I discussed this with the patient who expressed understanding and agrees.
[2021-10-02] MEDS ORDERED: METOCLOPRAMIDE 10 MG/2 ML INJ IV PRN ×2 (20:57→21:10)
[2021-10-02] MEDS ORDERED: ACETAMINOPHEN 325 MG TAB PO PRN (20:57)
[2021-10-02] MEDS ORDERED: oxyCODONE /ACETAMINOPHEN 5-325MG TAB PO PRN (20:57)
[2021-10-02] MEDS ORDERED: HYDROmorphone 0.5 MG/0.5 ML INJ IV PRN (20:57)
[2021-10-02] MEDS ORDERED: MORPHINE 2 MG/1 ML INJ IV PRN (20:57)
[2021-10-02] MEDS ORDERED: ONDANSETRON 4 MG/2 ML INJ IV PRN (20:57)
[2021-10-02] MEDS ORDERED: HUM INSULIN NPH SQ SCH (22:00)
[2021-10-02] MEDS ORDERED: REG INSULIN SQ SCH (22:00)
[2021-10-02] MEDS ORDERED: NON-FORMULARY EACH (Pravastatin Sodium [Pravastatin] 10 MG Tablet) PO SCH (22:00)
[2021-10-02] MEDS: cloNIDine 0.2 MG TAB PO SCH (23:50)
[2021-10-02] MEDS: METOPROLOL TARTRATE 100 MG TAB PO SCH (23:51)
[2021-10-02] MEDS: PRAVASTATIN 40 MG TAB PO SCH (23:52)
[2021-10-02] MEDS: HEPARIN 5,000 UNIT/1 ML VIAL SUB-Q SCH (23:52)
[2021-10-02] MEDS: NIFEdipine XL 60 MG TAB PO SCH (23:52)
[2021-10-02] MEDS: ASPIRIN 325 MG TAB PO SCH (23:56)
[2021-10-03] MEDS: INSULIN NPH/REGULAR 70/30 INJ SUB-Q SCH ×3 (00:02→18:44)
[2021-10-03 05:33] LABS: Basophils % (Auto) 0.8 % (0.0-1.8); Eosinophils # (Auto) 0.2 K/mm3 (0.0-0.4); Eosinophils % (Auto) 3.9 % (0.0-4.3); Hematocrit 30.4 % (35.5-45.6); Hemoglobin 10.4 gm/dl (11.8-15.2); Lymphocytes # (Auto) 0.6 K/mm3 (1.2-5.4); Lymphocytes % (Auto) 13.3 % (13.4-35.0); Mean Corpuscular HGB Conc 34 % (32-34); Mean Corpuscular Volume 86 fl (84-94); Monocytes # (Auto) 0.4 K/mm3 (0.0-0.8); Monocytes % (Auto) 8.5 % (0.0-7.3); Platelet Count 196 K/mm3 (140-440); Red Blood Count 3.53 M/mm3 (3.65-5.03)
[2021-10-03 05:49] LABS: Albumin 3.3 g/dL (3.9-5); Calcium 8.8 mg/dL (8.4-10.2)
--- NOTE | 2021-10-03 07:14 | History and Physical Report ---
History of Present Illness Date of examination: 10/03/21 Date of admission: 10/02/21 20:57 Chief complaint: Malfunctioning dialysis catheter History of present illness: 50-year-old male well-known to me from the office previously comes in for nonfunctioning hemodialysis catheter. Patient had a small slow progression of his chronic kidney disease and ended up on dialysis recently around July. No AV fistula. AV fistula is being planned. Clinic presented for dialysis today patient was informed that the catheter was not working. No shortness of breath present. No chest pain. Patient history of uncontrolled hypertension and diabetes. - Past Medical History --Hypertension: Yes --Diabetes: Yes --Renal Disease: Yes --Additional medical history: high chol - Surgical History --Additional Surgical History: Right chest permacath present - Family History --Family history: no significant - Social History --Smoking Status: Never Smoker --Substance Use Type: None (Denies illicit drug use) - Medications --Home Medications: Home Medications Medication Instructions Recorded Confirmed Last Taken Type Pravastatin Sodium [Pravastatin] 40 mg PO HS 05/19/13 10/02/21 10/02/21 History cloNIDine [Catapres] 0.2 mg PO BID 05/19/13 10/02/21 10/02/21 History Aspirin 325 mg PO QDAY #30 tablet 05/23/13 10/02/21 10/02/21 Rx Hum Insulin NPH/Reg Insulin Hm 20 unit SQ BID #10 ml 05/23/13 10/02/21 10/02/21 Rx [Humulin 70-30 Pen] Metoprolol [Lopressor TAB] 100 mg PO BID #60 tablet 05/23/13 10/02/21 10/02/21 Rx NIFEdipine XL [Procardia Xl] 60 mg PO Q12HR #60 tablet 05/23/13 10/02/21 10/02/21 Rx Review of Systems ROS: Stated complaint: DIALYSIS PORT BLOCKED Other details as noted in HPI Constitutional: no symptoms reported Eyes: denies: eye pain ENT: denies: throat pain Respiratory: no symptoms reported Cardiovascular: denies: chest pain Endocrine: no symptoms reported Gastrointestinal: denies: abdominal pain Genitourinary: denies: testicular pain Musculoskeletal: denies: back pain Neurological: denies: headache Past History Past Medical History: diabetes, dialysis, ESRD, hypertension, hyperlipidemia, [facility] Past Surgical History: Other (permacath insertion) Social history: no significant social history Family history: no significant family history Medications and Allergies Allergies Allergy/AdvReac Type Severity Reaction Status Date / Time No Known Allergies Allergy Verified 08/05/21 11:58 Home Medications Medication Instructions Recorded Confirmed Last Taken Type Pravastatin Sodium [Pravastatin] 40 mg PO HS 05/19/13 10/02/21 10/02/21 History cloNIDine [Catapres] 0.2 mg PO BID 05/19/13 10/02/21 10/02/21 History Aspirin 325 mg PO QDAY #30 tablet 05/23/13 10/02/21 10/02/21 Rx Hum Insulin NPH/Reg Insulin Hm 20 unit SQ BID #10 ml 05/23/13 10/02/21 10/02/21 Rx [Humulin 70-30 Pen] Metoprolol [Lopressor TAB] 100 mg PO BID #60 tablet 05/23/13 10/02/21 10/02/21 Rx NIFEdipine XL [Procardia Xl] 60 mg PO Q12HR #60 tablet 05/23/13 10/02/21 10/02/21 Rx Active Meds: Active Medications Acetaminophen (Acetaminophen 325 Mg Tab) 650 mg PO Q4H PRN PRN Reason: Pain MILD(1-3)/Fever >100.5/JUAN Aspirin (Aspirin 325 Mg Tab) 325 mg PO QDAY [facility] Last Admin: 10/02/21 23:56 Dose: 325 mg Clonidine HCl (Clonidine 0.2 Mg Tab) 0.2 mg PO BID [facility] Last Admin: 10/02/21 23:50 Dose: 0.2 mg Heparin Sodium (Porcine) (Heparin 5,000 Unit/1 Ml Vial) 5,000 unit SUB-Q Q12HR [facility] Last Admin: 10/02/21 23:52 Dose: 5,000 unit Hydromorphone HCl (Hydromorphone 0.5 Mg/0.5 Ml Inj) 0.5 mg IV Q3H PRN PRN Reason: Pain , Severe (7-10) Insulin Human Isoph/Insulin Regular (Insulin Nph/Regular 70/30 Inj) 20 unit SUB-Q BIDDIAB [facility] Last Admin: 10/03/21 00:02 Dose: 20 unit Metoclopramide HCl (Metoclopramide 10 Mg/2 Ml Inj) 5 mg IV Q6H PRN PRN Reason: Nausea And Vomiting Metoprolol Tartrate (Metoprolol Tartrate 100 Mg Tab) 100 mg PO BID [facility] Last Admin: 10/02/21 23:51 Dose: 100 mg Morphine Sulfate (Morphine 2 Mg/1 Ml Inj) 2 mg IV Q4H PRN PRN Reason: Pain, Moderate (4-6) Nifedipine (Nifedipine Xl 60 Mg Tab) 60 mg PO Q12H [facility] Last Admin: 10/02/21 23:52 Dose: 60 mg Ondansetron HCl (Ondansetron 4 Mg/2 Ml Inj) 4 mg IV Q8H PRN PRN Reason: Nausea And Vomiting Oxycodone/Acetaminophen (Oxycodone /Acetaminophen 5-325mg Tab) 1 tab PO Q6H PRN PRN Reason: Pain, Moderate (4-6) Pravastatin Sodium (Pravastatin 40 Mg Tab) 40 mg PO QHS [facility] Last Admin: 10/02/21 23:52 Dose: 40 mg Sodium Chloride (Sodium Chloride 0.9% 10 Ml Flush Syringe) 10 ml IV BID [facility] Last Admin: 10/02/21 23:54 Dose: 10 ml Sodium Chloride (Sodium Chloride 0.9% 10 Ml Flush Syringe) 10 ml IV PRN PRN PRN Reason: LINE FLUSH Exam - Constitutional Vitals: Temp Pulse Resp BP Pulse Ox 98.3 F 112 H 20 116/66 95 10/02/21 23:55 10/02/21 23:51 10/03/21 00:24 10/02/21 23:51 10/03/21 00:24 General appearance: Present: no acute distress, well-nourished - EENT Eyes: Present: PERRL ENT: hearing intact, clear oral mucosa - Neck Neck: Present: supple, normal ROM - Respiratory Respiratory effort: normal Respiratory: bilateral: CTA - Cardiovascular Heart rate: 78 Rhythm: regular Heart Sounds: Present: S1 & S2. Absent: rub, click - Extremities Extremities: pulses symmetrical, No edema Peripheral Pulses: within normal limits - Abdominal General gastrointestinal: Present: soft, non-tender, non-distended, normal bowel sounds Male genitourinary: Present: normal - Integumentary Integumentary: Present: clear, warm, dry - Musculoskeletal Musculoskeletal: gait normal, strength equal bilaterally - Psychiatric Psychiatric: appropriate mood/affect, intact judgment & insight - Neurologic Neurologic: CNII-XII intact, moves all extremities Results - Labs CBC & Chem 7: 10/03/21 04:20 10/03/21 04:20 Labs: Laboratory Last Values WBC 4.6 K/mm3 (4.5-11.0) 10/03/21 04:20 RBC 3.53 M/mm3 (3.65-5.03) L 10/03/21 04:20 Hgb 10.4 gm/dl (11.8-15.2) L 10/03/21 04:20 Hct 30.4 % (35.5-45.6) L 10/03/21 04:20 MCV 86 fl (84-94) 10/03/21 04:20 MCH 29 pg (28-32) 10/03/21 04:20 MCHC 34 % (32-34) 10/03/21 04:20 RDW 16.0 % (13.2-15.2) H 10/03/21 04:20 Plt Count 196 K/mm3 (140-440) 10/03/21 04:20 Lymph % (Auto) 13.3 % (13.4-35.0) L 10/03/21 04:20 [place] % (Auto) 8.5 % (0.0-7.3) H 10/03/21 04:20 Eos % (Auto) 3.9 % (0.0-4.3) 10/03/21 04:20 Baso % (Auto) 0.8 % (0.0-1.8) 10/03/21 04:20 Lymph # (Auto) 0.6 K/mm3 (1.2-5.4) L 10/03/21 04:20 [place] # (Auto) 0.4 K/mm3 (0.0-0.8) 10/03/21 04:20 Eos # (Auto) 0.2 K/mm3 (0.0-0.4) 10/03/21 04:20 Baso # (Auto) 0.0 K/mm3 (0.0-0.1) 10/03/21 04:20 Seg Neutrophils % 73.5 % (40.0-70.0) H 10/03/21 04:20 Seg Neutrophils # 3.4 K/mm3 (1.8-7.7) 10/03/21 04:20 PT 13.8 Sec. (12.2-14.9) 10/02/21 13:00 INR 0.96 (0.87-1.13) 10/02/21 13:00 Sodium 138 mmol/L (137-145) 10/03/21 04:20 Potassium 4.0 mmol/L (3.6-5.0) 10/03/21 04:20 Chloride 101.0 mmol/L (98-107) 10/03/21 04:20 Carbon Dioxide 26 mmol/L (22-30) 10/03/21 04:20 Anion Gap 15 mmol/L 10/03/21 04:20 BUN 37 mg/dL (9-20) H 10/03/21 04:20 Creatinine 5.5 mg/dL (0.8-1.3) H 10/03/21 04:20 Estimated GFR 13 ml/min 10/03/21 04:20 BUN/Creatinine Ratio 7 % 10/03/21 04:20 Glucose 129 mg/dL (75-100) H 10/03/21 04:20 POC Glucose 146 mg/dL (70-105) H 10/02/21 22:44 Calcium 8.8 mg/dL (8.4-10.2) 10/03/21 04:20 Total Bilirubin 0.20 mg/dL (0.1-1.2) 10/03/21 04:20 AST 8 units/L (5-40) 10/03/21 04:20 ALT 10 units/L (7-56) 10/03/21 04:20 Alkaline Phosphatase 76 units/L (35-129) 10/03/21 04:20 Total Protein 5.5 g/dL (6.3-8.2) L 10/03/21 04:20 Albumin 3.3 g/dL (3.9-5) L 10/03/21 04:20 Albumin/Globulin Ratio 1.5 % 10/03/21 04:20 Short CBC 10/02/21 10/03/21 Range/Units 13:00 04:20 WBC 5.0 4.6 (4.5-11.0) K/mm3 Hgb 11.1 L 10.4 L (11.8-15.2) gm/dl Hct 33.5 L 30.4 L (35.5-45.6) % Plt Count 194 196 (140-440) K/mm3 BMP 10/02/21 10/03/21 13:00 04:20 Sodium 138 138 Potassium 4.1 4.0 Chloride 100.7 101.0 Carbon Dioxide 24 26 BUN 30 H 37 H Creatinine 4.9 H 5.5 H Glucose 194 H 129 H Calcium 9.2 8.8 Liver Function 10/03/21 Range/Units 04:20 Total Bilirubin 0.20 (0.1-1.2) mg/dL AST 8 (5-40) units/L ALT 10 (7-56) units/L Alkaline Phosphatase 76 (35-129) units/L Albumin 3.3 L (3.9-5) g/dL [place]/IV: Voiding Method Toilet Assessment and Plan Advance Directives: Yes (Full code) Plan of care discussed with patient/family: Yes - Patient Problems (1) Complication, dialysis catheter clot or failure Current Visit: Yes Status: Acute Plan to address problem: Patient to get the new dialysis catheter Vascular surgery consulted Nephrology consulted (2) End stage renal disease on dialysis Current Visit: No Status: Chronic Plan to address problem: Continue hemodialysis as per schedule Nephrology consulted No volume overload (3) Hypertension Current Visit: No Status: Chronic Qualifiers: Hypertension type: primary hypertension Qualified Code(s): I10 - Essential (primary) hypertension Plan to address problem: Continue antihypertensives and adjust medications as necessary (4) IDDM (insulin dependent diabetes mellitus) Current Visit: No Status: Chronic Plan to address problem: Continue home insulin and coverage Select hemoglobin A1c (5) Hyperlipidemia Current Visit: Yes Status: Chronic Qualifiers: Hyperlipidemia type: unspecified Qualified Code(s): E78.5 - Hyperlipidemia, unspecified Plan to address problem: Continue statins (6) Malnutrition Current Visit: Yes Status: Chronic Qualifiers: Protein-calorie malnutrition severity: mild Plan to address problem: Dietary supplements requested (7) DVT prophylaxis Current Visit: No Status: Acute Plan to address problem: On anticoagulation GI prophylaxis (8) Advance care planning Current Visit: Yes Status: Acute Plan to address problem: Disease education conducted, care plan discussed, diagnosis discussed, prognosis discussed. Patient is full code. Patient acknowledged understanding and agreement with care plan. +30 minutes.
[2021-10-03] MEDS: INSULIN LISPRO 100 UNIT/ML SUB-Q SCH ×4 (09:01→23:10)
[2021-10-03] MEDS: HEPARIN 5,000 UNIT/1 ML VIAL SUB-Q SCH ×2 (09:04→23:05)
[2021-10-03] MEDS: METOPROLOL TARTRATE 100 MG TAB PO SCH ×2 (09:05→22:59)
[2021-10-03] MEDS: cloNIDine 0.2 MG TAB PO SCH ×2 (09:05→22:59)
[2021-10-03] MEDS: NIFEdipine XL 60 MG TAB PO SCH ×2 (09:06→23:03)
[2021-10-03] MEDS: ASPIRIN 325 MG TAB PO SCH (09:06)
--- NOTE | 2021-10-03 10:14 | Progress Note ---
Assessment and Plan Assessment and plan: History of present illness (per admitting doctor): 50-year-old male well-known to me from the office previously comes in for nonfunctioning hemodialysis catheter. Patient had a small slow progression of his chronic kidney disease and ended up on dialysis recently around July. No AV fistula. AV fistula is being planned. Clinic presented for dialysis today patient was informed that the catheter was not working. No shortness of breath present. No chest pain. Patient history of uncontrolled hypertension and diabetes. Hospital Course: 10/03: Awaiting completion of permacath exchange. ok from my standpoint for d/c after procedure assuming no complications and functional catheter. Will follow vascular and nephrology plan. Assessment and Plan: # Complication, dialysis catheter clot or failure Current Visit: Yes Status: Acute Plan to address problem: Patient to get the new dialysis catheter Vascular surgery consulted Nephrology consulted # End stage renal disease on dialysis Current Visit: No Status: Chronic Plan to address problem: Continue hemodialysis as per schedule Nephrology consulted No volume overload # Hypertension Current Visit: No Status: Chronic Qualifiers: Hypertension type: primary hypertension Qualified Code(s): I10 - Essential (primary) hypertension Plan to address problem: Continue antihypertensives and adjust medications as necessary # IDDM (insulin dependent diabetes mellitus) Current Visit: No Status: Chronic Plan to address problem: Continue home insulin and coverage Select hemoglobin A1c # Hyperlipidemia Current Visit: Yes Status: Chronic Qualifiers: Hyperlipidemia type: unspecified Qualified Code(s): E78.5 - Hyperlipidemia, unspecified Plan to address problem: Continue statins # Malnutrition Current Visit: Yes Status: Chronic Qualifiers: Protein-calorie malnutrition severity: mild Plan to address problem: Dietary supplements requested # DVT prophylaxis Current Visit: No Status: Acute Plan to address problem: On anticoagulation GI prophylaxis #Morbid Obesity + 15 min preventative health counseling on for balanced diet /regular exercise. #Advance care planning Disease education conducted, care plan discussed, diagnoses discussed, prognosis discussed, patient is full code, patient acknowledges understanding and agree with care plan, discussed about patient clinical course and answered all questions to satisfaction. +30 minutes. +30 minutes. History Interval history: No acute complaints on bedside encounter. Resting comfortably no concerns at this time. Follows with Dr. Sparrow for outpatient nephrology needs. Hospitalist Physical - Physical exam Narrative exam: Physical Exam: VITAL SIGNS: Reviewed. GENERAL: The patient appears normally developed, Vital signs as documented. HEAD: No signs of head trauma. EYES: Pupils are equal. Extraocular motions intact. EARS: Hearing grossly intact. MOUTH: Oropharynx is normal. NECK: No adenopathy, no JVD. CHEST: Chest with clear breath sounds bilaterally. No wheezes, rales, or rhonchi. CARDIAC: Regular rate and rhythm. S1 and S2, without murmurs, gallops, or rubs. VASCULAR: No Edema. Peripheral pulses normal and equal in all extremities. ABDOMEN: Soft, non tender and non distended. No rebound or guarding, and no masses palpated. Bowel Sounds normal. MUSCULOSKELETAL: Good range of motion of all major joints. Extremities without clubbing, cyanosis or edema. NEUROLOGIC EXAM: Alert and oriented x 4. no focal sensory or strength deficits. PSYCHIATRIC: Mood normal. SKIN: detail exam as documented in skin assessment - Constitutional Vitals: Temp Pulse Resp BP Pulse Ox 97.4 F L 68 20 154/82 97 10/03/21 04:54 10/03/21 09:05 10/03/21 04:54 10/03/21 09:05 10/03/21 04:54 General appearance: Present: no acute distress, well-nourished Results - Labs CBC & Chem 7: 10/03/21 04:20 10/03/21 04:20 Labs: Laboratory Last Values WBC 4.6 K/mm3 (4.5-11.0) 10/03/21 04:20 RBC 3.53 M/mm3 (3.65-5.03) L 10/03/21 04:20 Hgb 10.4 gm/dl (11.8-15.2) L 10/03/21 04:20 Hct 30.4 % (35.5-45.6) L 10/03/21 04:20 MCV 86 fl (84-94) 10/03/21 04:20 MCH 29 pg (28-32) 10/03/21 04:20 MCHC 34 % (32-34) 10/03/21 04:20 RDW 16.0 % (13.2-15.2) H 10/03/21 04:20 Plt Count 196 K/mm3 (140-440) 10/03/21 04:20 Lymph % (Auto) 13.3 % (13.4-35.0) L 10/03/21 04:20 [place] % (Auto) 8.5 % (0.0-7.3) H 10/03/21 04:20 Eos % (Auto) 3.9 % (0.0-4.3) 10/03/21 04:20 Baso % (Auto) 0.8 % (0.0-1.8) 10/03/21 04:20 Lymph # (Auto) 0.6 K/mm3 (1.2-5.4) L 10/03/21 04:20 [place] # (Auto) 0.4 K/mm3 (0.0-0.8) 10/03/21 04:20 Eos # (Auto) 0.2 K/mm3 (0.0-0.4) 10/03/21 04:20 Baso # (Auto) 0.0 K/mm3 (0.0-0.1) 10/03/21 04:20 Seg Neutrophils % 73.5 % (40.0-70.0) H 10/03/21 04:20 Seg Neutrophils # 3.4 K/mm3 (1.8-7.7) 10/03/21 04:20 PT 13.8 Sec. (12.2-14.9) 10/02/21 13:00 INR 0.96 (0.87-1.13) 10/02/21 13:00 Sodium 138 mmol/L (137-145) 10/03/21 04:20 Potassium 4.0 mmol/L (3.6-5.0) 10/03/21 04:20 Chloride 101.0 mmol/L (98-107) 10/03/21 04:20 Carbon Dioxide 26 mmol/L (22-30) 10/03/21 04:20 Anion Gap 15 mmol/L 10/03/21 04:20 BUN 37 mg/dL (9-20) H 10/03/21 04:20 Creatinine 5.5 mg/dL (0.8-1.3) H 10/03/21 04:20 Estimated GFR 13 ml/min 10/03/21 04:20 BUN/Creatinine Ratio 7 % 10/03/21 04:20 Glucose 129 mg/dL (75-100) H 10/03/21 04:20 POC Glucose 146 mg/dL (70-105) H 10/02/21 22:44 Calcium 8.8 mg/dL (8.4-10.2) 10/03/21 04:20 Total Bilirubin 0.20 mg/dL (0.1-1.2) 10/03/21 04:20 AST 8 units/L (5-40) 10/03/21 04:20 ALT 10 units/L (7-56) 10/03/21 04:20 Alkaline Phosphatase 76 units/L (35-129) 10/03/21 04:20 Total Protein 5.5 g/dL (6.3-8.2) L 10/03/21 04:20 Albumin 3.3 g/dL (3.9-5) L 10/03/21 04:20 Albumin/Globulin Ratio 1.5 % 10/03/21 04:20 Higuera/IV: Voiding Method Toilet Active Medications - Current Medications Current Medications: Generic Name Dose Route Start Last Admin Trade Name Freq PRN Reason Stop Dose Admin Acetaminophen 650 mg 10/02/21 20:57 Acetaminophen 325 Mg Tab PO Q4H PRN Pain MILD(1-3)/Fever >100.5/JUAN Aspirin 325 mg 10/02/21 21:00 10/03/21 09:06 Aspirin 325 Mg Tab PO 325 mg QDAY AVINASH Administration Clonidine HCl 0.2 mg 10/02/21 22:00 10/03/21 09:05 Clonidine 0.2 Mg Tab PO 0.2 mg BID AVINASH Administration Heparin Sodium (Porcine) 5,000 unit 10/02/21 22:00 10/03/21 09:04 Heparin 5,000 Unit/1 Ml Vial SUB-Q 5,000 unit Q12HR AVINASH Administration Hydromorphone HCl 0.5 mg 10/02/21 20:57 Hydromorphone 0.5 Mg/0.5 Ml Inj IV Q3H PRN Pain , Severe (7-10) Insulin Human Isoph/Insulin Regular 20 unit 10/02/21 22:00 10/03/21 00:02 Insulin Nph/Regular 70/30 Inj SUB-Q 20 unit BIDDIAB AVINASH Administration Insulin Human Lispro 0 unit 10/03/21 07:30 10/03/21 09:01 Insulin Lispro 100 Unit/Ml SUB-Q Not Given ACHS AVINASH Protocol Metoclopramide HCl 5 mg 10/02/21 21:10 Metoclopramide 10 Mg/2 Ml Inj IV Q6H PRN Nausea And Vomiting Metoprolol Tartrate 100 mg 10/02/21 22:00 10/03/21 09:05 Metoprolol Tartrate 100 Mg Tab PO 100 mg BID AVINASH Administration Morphine Sulfate 2 mg 10/02/21 20:57 Morphine 2 Mg/1 Ml Inj IV Q4H PRN Pain, Moderate (4-6) Nifedipine 60 mg 10/02/21 22:00 10/03/21 09:06 Nifedipine Xl 60 Mg Tab PO 60 mg Q12H AVINASH Administration Ondansetron HCl 4 mg 10/02/21 20:57 Ondansetron 4 Mg/2 Ml Inj IV Q8H PRN Nausea And Vomiting Oxycodone/Acetaminophen 1 tab 10/02/21 20:57 Oxycodone /Acetaminophen 5-325mg Tab PO Q6H PRN Pain, Moderate (4-6) Pravastatin Sodium 40 mg 10/02/21 22:00 10/02/21 23:52 Pravastatin 40 Mg Tab PO 40 mg QHS AVINASH Administration Sodium Chloride 10 ml 10/02/21 22:00 10/02/21 23:54 Sodium Chloride 0.9% 10 Ml Flush Syringe IV 10 ml BID AVINASH Administration Sodium Chloride 10 ml 10/02/21 20:57 Sodium Chloride 0.9% 10 Ml Flush Syringe IV PRN PRN LINE FLUSH
[2021-10-03] MEDS: PRAVASTATIN 40 MG TAB PO SCH (22:59)
--- NOTE | 2021-10-04 08:39 | Progress Note ---
Assessment and Plan Assessment and plan: History of present illness (per admitting doctor): 50-year-old male well-known to me from the office previously comes in for nonfunctioning hemodialysis catheter. Patient had a small slow progression of his chronic kidney disease and ended up on dialysis recently around July. No AV fistula. AV fistula is being planned. Clinic presented for dialysis today patient was informed that the catheter was not working. No shortness of breath present. No chest pain. Patient history of uncontrolled hypertension and diabetes. Hospital Course: 10/03: Awaiting completion of permacath exchange. ok from my standpoint for d/c after procedure assuming no complications and functional catheter. Will follow vascular and nephrology plan. 10/04 Awaiting permacath exchange. Hypoglycemic episode noted, will decrease home 70/30 dosage. Assessment and Plan: # Complication, dialysis catheter clot or failure Current Visit: Yes Status: Acute Plan to address problem: Patient to get the new dialysis catheter Vascular surgery consulted Nephrology consulted # End stage renal disease on dialysis Current Visit: No Status: Chronic Plan to address problem: Continue hemodialysis as per schedule Nephrology consulted No volume overload # Hypertension Current Visit: No Status: Chronic Qualifiers: Hypertension type: primary hypertension Qualified Code(s): I10 - Essential (primary) hypertension Plan to address problem: Continue antihypertensives and adjust medications as necessary # IDDM (insulin dependent diabetes mellitus) Current Visit: No Status: Chronic Plan to address problem: Continue home insulin and coverage Select hemoglobin A1c # Hyperlipidemia Current Visit: Yes Status: Chronic Qualifiers: Hyperlipidemia type: unspecified Qualified Code(s): E78.5 - Hyperlipidemia, unspecified Plan to address problem: Continue statins # Malnutrition Current Visit: Yes Status: Chronic Qualifiers: Protein-calorie malnutrition severity: mild Plan to address problem: Dietary supplements requested # DVT prophylaxis Current Visit: No Status: Acute Plan to address problem: On anticoagulation GI prophylaxis #Morbid Obesity + 15 min preventative health counseling on for balanced diet /regular exercise. #Advance care planning Disease education conducted, care plan discussed, diagnoses discussed, prognosis discussed, patient is full code, patient acknowledges understanding and agree w ith care plan, discussed about patient clinical course and answered all questions to satisfaction. +30 minutes. +30 minutes. History Interval history: NO acute complaints. Hospitalist Physical - Physical exam Narrative exam: Physical Exam: VITAL SIGNS: Reviewed. GENERAL: The patient appears normally developed, Vital signs as documented. HEAD: No signs of head trauma. EYES: Pupils are equal. Extraocular motions intact. EARS: Hearing grossly intact. MOUTH: Oropharynx is normal. NECK: No adenopathy, no JVD. CHEST: Chest with clear breath sounds bilaterally. No wheezes, rales, or rhonchi. CARDIAC: Regular rate and rhythm. S1 and S2, without murmurs, gallops, or rubs. VASCULAR: No Edema. Peripheral pulses normal and equal in all extremities. ABDOMEN: Soft, non tender and non distended. No rebound or guarding, and no masses palpated. Bowel Sounds normal. MUSCULOSKELETAL: Good range of motion of all major joints. Extremities without clubbing, cyanosis or edema. NEUROLOGIC EXAM: Alert and oriented x 4. no focal sensory or strength deficits. PSYCHIATRIC: Mood normal. SKIN: detail exam as documented in skin assessment - Constitutional Vitals: Temp Pulse Resp BP Pulse Ox 98.5 F 62 16 181/95 98 10/04/21 06:31 10/04/21 06:31 10/04/21 06:31 10/04/21 06:31 10/04/21 06:31 General appearance: Present: no acute distress, well-nourished Results - Labs CBC & Chem 7: 10/03/21 04:20 10/03/21 04:20 Labs: Laboratory Last Values WBC 4.6 K/mm3 (4.5-11.0) 10/03/21 04:20 RBC 3.53 M/mm3 (3.65-5.03) L 10/03/21 04:20 Hgb 10.4 gm/dl (11.8-15.2) L 10/03/21 04:20 Hct 30.4 % (35.5-45.6) L 10/03/21 04:20 MCV 86 fl (84-94) 10/03/21 04:20 MCH 29 pg (28-32) 10/03/21 04:20 MCHC 34 % (32-34) 10/03/21 04:20 RDW 16.0 % (13.2-15.2) H 10/03/21 04:20 Plt Count 196 K/mm3 (140-440) 10/03/21 04:20 Lymph % (Auto) 13.3 % (13.4-35.0) L 10/03/21 04:20 [place] % (Auto) 8.5 % (0.0-7.3) H 10/03/21 04:20 Eos % (Auto) 3.9 % (0.0-4.3) 10/03/21 04:20 Baso % (Auto) 0.8 % (0.0-1.8) 10/03/21 04:20 Lymph # (Auto) 0.6 K/mm3 (1.2-5.4) L 10/03/21 04:20 [place] # (Auto) 0.4 K/mm3 (0.0-0.8) 10/03/21 04:20 Eos # (Auto) 0.2 K/mm3 (0.0-0.4) 10/03/21 04:20 Baso # (Auto) 0.0 K/mm3 (0.0-0.1) 10/03/21 04:20 Seg Neutrophils % 73.5 % (40.0-70.0) H 10/03/21 04:20 Seg Neutrophils # 3.4 K/mm3 (1.8-7.7) 10/03/21 04:20 PT 13.8 Sec. (12.2-14.9) 10/02/21 13:00 INR 0.96 (0.87-1.13) 10/02/21 13:00 Sodium 138 mmol/L (137-145) 10/03/21 04:20 Potassium 4.0 mmol/L (3.6-5.0) 10/03/21 04:20 Chloride 101.0 mmol/L (98-107) 10/03/21 04:20 Carbon Dioxide 26 mmol/L (22-30) 10/03/21 04:20 Anion Gap 15 mmol/L 10/03/21 04:20 BUN 37 mg/dL (9-20) H 10/03/21 04:20 Creatinine 5.5 mg/dL (0.8-1.3) H 10/03/21 04:20 Estimated GFR 13 ml/min 10/03/21 04:20 BUN/Creatinine Ratio 7 % 10/03/21 04:20 Glucose 129 mg/dL (75-100) H 10/03/21 04:20 POC Glucose 110 mg/dL (70-105) H 10/03/21 23:09 Hemoglobin A1c 6.3 % (4-6) H 10/04/21 04:16 Calcium 8.8 mg/dL (8.4-10.2) 10/03/21 04:20 Total Bilirubin 0.20 mg/dL (0.1-1.2) 10/03/21 04:20 AST 8 units/L (5-40) 10/03/21 04:20 ALT 10 units/L (7-56) 10/03/21 04:20 Alkaline Phosphatase 76 units/L (35-129) 10/03/21 04:20 Total Protein 5.5 g/dL (6.3-8.2) L 10/03/21 04:20 Albumin 3.3 g/dL (3.9-5) L 10/03/21 04:20 Albumin/Globulin Ratio 1.5 % 10/03/21 04:20 Higuera/IV: Voiding Method Toilet Active Medications - Current Medications Current Medications: Generic Name Dose Route Start Last Admin Trade Name Freq PRN Reason Stop Dose Admin Acetaminophen 650 mg 10/02/21 20:57 Acetaminophen 325 Mg Tab PO Q4H PRN Pain MILD(1-3)/Fever >100.5/JUAN Aspirin 325 mg 10/02/21 21:00 10/03/21 09:06 Aspirin 325 Mg Tab PO 325 mg QDAY AVINASH Administration Clonidine HCl 0.2 mg 10/02/21 22:00 10/03/21 22:59 Clonidine 0.2 Mg Tab PO 0.2 mg BID AVINASH Administration Heparin Sodium (Porcine) 5,000 unit 10/02/21 22:00 10/03/21 23:05 Heparin 5,000 Unit/1 Ml Vial SUB-Q 5,000 unit Q12HR AVINASH Administration Hydromorphone HCl 0.5 mg 10/02/21 20:57 Hydromorphone 0.5 Mg/0.5 Ml Inj IV Q3H PRN Pain , Severe (7-10) Insulin Human Isoph/Insulin Regular 20 unit 10/02/21 22:00 10/03/21 18:44 Insulin Nph/Regular 70/30 Inj SUB-Q 20 unit BIDDIAB AVINASH Administration Insulin Human Lispro 0 unit 10/03/21 07:30 10/03/21 23:10 Insulin Lispro 100 Unit/Ml SUB-Q Not Given ACHS AVINASH Protocol Metoclopramide HCl 5 mg 10/02/21 21:10 Metoclopramide 10 Mg/2 Ml Inj IV Q6H PRN Nausea And Vomiting Metoprolol Tartrate 100 mg 10/02/21 22:00 10/03/21 22:59 Metoprolol Tartrate 100 Mg Tab PO 100 mg BID AVINASH Administration Morphine Sulfate 2 mg 10/02/21 20:57 Morphine 2 Mg/1 Ml Inj IV Q4H PRN Pain, Moderate (4-6) Nifedipine 60 mg 10/02/21 22:00 10/03/21 23:03 Nifedipine Xl 60 Mg Tab PO 60 mg Q12H AVINASH Administration Ondansetron HCl 4 mg 10/02/21 20:57 Ondansetron 4 Mg/2 Ml Inj IV Q8H PRN Nausea And Vomiting Oxycodone/Acetaminophen 1 tab 10/02/21 20:57 Oxycodone /Acetaminophen 5-325mg Tab PO Q6H PRN Pain, Moderate (4-6) Pravastatin Sodium 40 mg 10/02/21 22:00 10/03/21 22:59 Pravastatin 40 Mg Tab PO 40 mg QHS AVINASH Administration Sodium Chloride 10 ml 10/02/21 22:00 10/03/21 23:00 Sodium Chloride 0.9% 10 Ml Flush Syringe IV 10 ml BID AVINASH Administration Sodium Chloride 10 ml 10/02/21 20:57 Sodium Chloride 0.9% 10 Ml Flush Syringe IV PRN PRN LINE FLUSH
[2021-10-04] MEDS: INSULIN LISPRO 100 UNIT/ML SUB-Q SCH ×4 (09:05→21:59)
[2021-10-04] MEDS: INSULIN NPH/REGULAR 70/30 INJ SUB-Q SCH ×2 (09:06→17:29)
[2021-10-04] MEDS: cloNIDine 0.2 MG TAB PO SCH ×2 (09:55→21:59)
[2021-10-04] MEDS: ASPIRIN 325 MG TAB PO SCH (09:55)
[2021-10-04] MEDS: NIFEdipine XL 60 MG TAB PO SCH ×2 (09:55→22:08)
[2021-10-04] MEDS: METOPROLOL TARTRATE 100 MG TAB PO SCH ×2 (09:56→21:59)
[2021-10-04] MEDS: HEPARIN 5,000 UNIT/1 ML VIAL SUB-Q SCH ×2 (09:56→22:00)
[2021-10-04] MEDS: PRAVASTATIN 40 MG TAB PO SCH (21:59)
[2021-10-05] MEDS: INSULIN LISPRO 100 UNIT/ML SUB-Q SCH ×2 (08:12→12:37)
[2021-10-05] MEDS: INSULIN NPH/REGULAR 70/30 INJ SUB-Q SCH (08:12)
--- NOTE | 2021-10-05 09:04 | Progress Note ---
Assessment and Plan Assessment and plan: History of present illness (per admitting doctor): 50-year-old male well-known to me from the office previously comes in for nonfunctioning hemodialysis catheter. Patient had a small slow progression of his chronic kidney disease and ended up on dialysis recently around July. No AV fistula. AV fistula is being planned. Clinic presented for dialysis today patient was informed that the catheter was not working. No shortness of breath present. No chest pain. Patient history of uncontrolled hypertension and diabetes. Hospital Course: 10/03: Awaiting completion of permacath exchange. ok from my standpoint for d/c after procedure assuming no complications and functional catheter. Will follow vascular and nephrology plan. 10/04 Awaiting permacath exchange. Hypoglycemic episode noted, will decrease home 70/30 dosage. 10/05: Awaiting completion of permacath exchange. ok from my standpoint for d/c after procedure assuming no complications and functional catheter. Of note, he has not had dialysis since last Tuesday. Will follow vascular and nephrology plans. Assessment and Plan: # Complication, dialysis catheter clot or failure Current Visit: Yes Status: Acute Plan to address problem: Patient to get the new dialysis catheter Vascular surgery consulted Nephrology consulted # End stage renal disease on dialysis Current Visit: No Status: Chronic Plan to address problem: Continue hemodialysis as per schedule Nephrology consulted No volume overload # Hypertension Current Visit: No Status: Chronic Qualifiers: Hypertension type: primary hypertension Qualified Code(s): I10 - Essential (primary) hypertension Plan to address problem: Continue antihypertensives and adjust medications as necessary # IDDM (insulin dependent diabetes mellitus) Current Visit: No Status: Chronic Plan to address problem: Continue home insulin and coverage Select hemoglobin A1c # Hyperlipidemia Current Visit: Yes Status: Chronic Qualifiers: Hyperlipidemia type: unspecified Qualified Code(s): E78.5 - Hyperlipidemia, unspecified Plan to address problem: Continue statins # Malnutrition Current Visit: Yes Status: Chronic Qualifiers: Protein-calorie malnutrition severity: mild Plan to address problem: Dietary supplements requested # DVT prophylaxis Current Visit: No Status: Acute Plan to address problem: On anticoagulation GI prophylaxis #Morbid Obesity + 15 min preventative health counseling on for balanced diet /regular exercise. #Advance care planning Disease education conducted, care plan discussed, diagnoses discussed, prognosis discussed, patient is full code, patient acknowledges understanding and agree with care plan, discussed about patient clinical course and answered all questions to satisfaction. +30 minutes. +30 minutes. History Interval history: No acute complaints. Hospitalist Physical - Physical exam Narrative exam: Physical Exam: VITAL SIGNS: Reviewed. GENERAL: The patient appears normally developed, Vital signs as documented. HEAD: No signs of head trauma. EYES: Pupils are equal. Extraocular motions intact. EARS: Hearing grossly intact. MOUTH: Oropharynx is normal. NECK: No adenopathy, no JVD. CHEST: Chest with clear breath sounds bilaterally. No wheezes, rales, or rhonchi. CARDIAC: Regular rate and rhythm. S1 and S2, without murmurs, gallops, or rubs. VASCULAR: No Edema. Peripheral pulses normal and equal in all extremities. ABDOMEN: Soft, non tender and non distended. No rebound or guarding, and no masses palpated. Bowel Sounds normal. MUSCULOSKELETAL: Good range of motion of all major joints. Extremities without clubbing, cyanosis or edema. NEUROLOGIC EXAM: Alert and oriented x 4. no focal sensory or strength deficits. PSYCHIATRIC: Mood normal. SKIN: detail exam as documented in skin assessment - Constitutional Vitals: Temp Pulse Resp BP Pulse Ox 98.3 F 67 20 166/95 98 10/05/21 06:01 10/05/21 06:01 10/05/21 06:01 10/05/21 06:01 10/05/21 07:54 General appearance: Present: no acute distress, well-nourished Results - Labs CBC & Chem 7: 10/03/21 04:20 10/03/21 04:20 Labs: Laboratory Last Values WBC 4.6 K/mm3 (4.5-11.0) 10/03/21 04:20 RBC 3.53 M/mm3 (3.65-5.03) L 10/03/21 04:20 Hgb 10.4 gm/dl (11.8-15.2) L 10/03/21 04:20 Hct 30.4 % (35.5-45.6) L 10/03/21 04:20 MCV 86 fl (84-94) 10/03/21 04:20 MCH 29 pg (28-32) 10/03/21 04:20 MCHC 34 % (32-34) 10/03/21 04:20 RDW 16.0 % (13.2-15.2) H 10/03/21 04:20 Plt Count 196 K/mm3 (140-440) 10/03/21 04:20 Lymph % (Auto) 13.3 % (13.4-35.0) L 10/03/21 04:20 [place] % (Auto) 8.5 % (0.0-7.3) H 10/03/21 04:20 Eos % (Auto) 3.9 % (0.0-4.3) 10/03/21 04:20 Baso % (Auto) 0.8 % (0.0-1.8) 10/03/21 04:20 Lymph # (Auto) 0.6 K/mm3 (1.2-5.4) L 10/03/21 04:20 [place] # (Auto) 0.4 K/mm3 (0.0-0.8) 10/03/21 04:20 Eos # (Auto) 0.2 K/mm3 (0.0-0.4) 10/03/21 04:20 Baso # (Auto) 0.0 K/mm3 (0.0-0.1) 10/03/21 04:20 Seg Neutrophils % 73.5 % (40.0-70.0) H 10/03/21 04:20 Seg Neutrophils # 3.4 K/mm3 (1.8-7.7) 10/03/21 04:20 PT 13.8 Sec. (12.2-14.9) 10/02/21 13:00 INR 0.96 (0.87-1.13) 10/02/21 13:00 Sodium 138 mmol/L (137-145) 10/03/21 04:20 Potassium 4.0 mmol/L (3.6-5.0) 10/03/21 04:20 Chloride 101.0 mmol/L (98-107) 10/03/21 04:20 Carbon Dioxide 26 mmol/L (22-30) 10/03/21 04:20 Anion Gap 15 mmol/L 10/03/21 04:20 BUN 37 mg/dL (9-20) H 10/03/21 04:20 Creatinine 5.5 mg/dL (0.8-1.3) H 10/03/21 04:20 Estimated GFR 13 ml/min 10/03/21 04:20 BUN/Creatinine Ratio 7 % 10/03/21 04:20 Glucose 129 mg/dL (75-100) H 10/03/21 04:20 POC Glucose 112 mg/dL (70-105) H 10/05/21 07:40 Hemoglobin A1c 6.3 % (4-6) H 10/04/21 04:16 Calcium 8.8 mg/dL (8.4-10.2) 10/03/21 04:20 Total Bilirubin 0.20 mg/dL (0.1-1.2) 10/03/21 04:20 AST 8 units/L (5-40) 10/03/21 04:20 ALT 10 units/L (7-56) 10/03/21 04:20 Alkaline Phosphatase 76 units/L (35-129) 10/03/21 04:20 Total Protein 5.5 g/dL (6.3-8.2) L 10/03/21 04:20 Albumin 3.3 g/dL (3.9-5) L 10/03/21 04:20 Albumin/Globulin Ratio 1.5 % 10/03/21 04:20 Higuera/IV: Voiding Method Toilet Active Medications - Current Medications Current Medications: Generic Name Dose Route Start Last Admin Trade Name Freq PRN Reason Stop Dose Admin Acetaminophen 650 mg 10/02/21 20:57 Acetaminophen 325 Mg Tab PO Q4H PRN Pain MILD(1-3)/Fever >100.5/JUAN Aspirin 325 mg 10/02/21 21:00 10/04/21 09:55 Aspirin 325 Mg Tab PO 325 mg QDAY AVINASH Administration Clonidine HCl 0.2 mg 10/02/21 22:00 10/04/21 21:59 Clonidine 0.2 Mg Tab PO 0.2 mg BID AVINASH Administration Heparin Sodium (Porcine) 5,000 unit 10/02/21 22:00 10/04/21 22:00 Heparin 5,000 Unit/1 Ml Vial SUB-Q 5,000 unit Q12HR AVINASH Administration Hydromorphone HCl 0.5 mg 10/02/21 20:57 Hydromorphone 0.5 Mg/0.5 Ml Inj IV Q3H PRN Pain , Severe (7-10) Insulin Human Isoph/Insulin Regular 10 unit 10/04/21 13:51 10/05/21 08:12 Insulin Nph/Regular 70/30 Inj SUB-Q Not Given BIDDIAB [facility] Insulin Human Lispro 0 unit 10/03/21 07:30 10/05/21 08:12 Insulin Lispro 100 Unit/Ml SUB-Q Not Given ACHS [facility] Protocol Metoclopramide HCl 5 mg 10/02/21 21:10 Metoclopramide 10 Mg/2 Ml Inj IV Q6H PRN Nausea And Vomiting Metoprolol Tartrate 100 mg 10/02/21 22:00 10/04/21 21:59 Metoprolol Tartrate 100 Mg Tab PO 100 mg BID AVINASH Administration Morphine Sulfate 2 mg 10/02/21 20:57 Morphine 2 Mg/1 Ml Inj IV Q4H PRN Pain, Moderate (4-6) Nifedipine 60 mg 10/02/21 22:00 10/04/21 22:08 Nifedipine Xl 60 Mg Tab PO 60 mg Q12H AVINASH Administration Ondansetron HCl 4 mg 10/02/21 20:57 Ondansetron 4 Mg/2 Ml Inj IV Q8H PRN Nausea And Vomiting Oxycodone/Acetaminophen 1 tab 10/02/21 20:57 Oxycodone /Acetaminophen 5-325mg Tab PO Q6H PRN Pain, Moderate (4-6) Pravastatin Sodium 40 mg 10/02/21 22:00 10/04/21 21:59 Pravastatin 40 Mg Tab PO 40 mg QHS AVINASH Administration Sodium Chloride 10 ml 10/02/21 22:00 10/04/21 22:08 Sodium Chloride 0.9% 10 Ml Flush Syringe IV 10 ml BID AVINASH Administration Sodium Chloride 10 ml 10/02/21 20:57 Sodium Chloride 0.9% 10 Ml Flush Syringe IV PRN PRN LINE FLUSH
[2021-10-05] MEDS: fentaNYL 100 MCG/2 ML INJ ONE ×2 (09:14→10:16)
[2021-10-05] MEDS: MIDAZOLAM 2 MG/2 ML INJ ONE ×2 (09:14→10:16)
[2021-10-05] MEDS: LIDOCAINE 2%/EPINEPHRINE 1:200,000 VIAL (20 ML) INFILTRATI ONE ×2 (09:15→10:17)
[2021-10-05] MEDS: HEPARIN 10,000 UNITS/10 ML VIAL ONE ×2 (09:15→10:20)
[2021-10-05] MEDS: SODIUM CHLORIDE 0.9% 250ML 250 ML ONE ×2 (09:15→09:58)
[2021-10-05] MEDS: HEPARIN/NS 5000 UNIT/500ML 500 ML IR ONE ×2 (09:16→09:58)
[2021-10-05] MEDS ORDERED: ceFAZolin/Water 2 GM/20 ML 2 GM/20 ML SYRINGE IV ONE (09:52)
[2021-10-05] MEDS ORDERED: SODIUM CHLORIDE 0.9% 100 ML IV PRN (10:19)
--- NOTE | 2021-10-05 10:43 | Consultation ---
History of Present Illness - Reason for Consult Consult date: 10/05/21 end stage renal disease - History of Present Illness Mr. Ovalle is a 50yo with ESRD on HD MWF who presented to the ED with malufunctioning permcath. Permcath exchange was planned for Tuesday. Outpatient HD was arranged for 11am HD on Tuesday at [facility] However, patient was admitted. He is awaiting permcath exchange. He denies SOB. He denies nausea, vomiting. He continues to make urine. Past History Past Medical History: diabetes, dialysis, ESRD, hypertension, hyperlipidemia, stroke Past Surgical History: Other (permacath insertion) Social history: no significant social history Family history: no significant family history Medications and Allergies Allergies Allergy/AdvReac Type Severity Reaction Status Date / Time No Known Allergies Allergy Verified 08/05/21 11:58 Home Medications Medication Instructions Recorded Confirmed Last Taken Type Pravastatin Sodium [Pravastatin] 40 mg PO HS 05/19/13 10/02/21 10/02/21 History cloNIDine [Catapres] 0.2 mg PO BID 05/19/13 10/02/21 10/02/21 History Aspirin 325 mg PO QDAY #30 tablet 05/23/13 10/02/21 10/02/21 Rx Hum Insulin NPH/Reg Insulin Hm 20 unit SQ BID #10 ml 05/23/13 10/02/21 10/02/21 Rx [Humulin 70-30 Pen] Metoprolol [Lopressor TAB] 100 mg PO BID #60 tablet 05/23/13 10/02/21 10/02/21 Rx NIFEdipine XL [Procardia Xl] 60 mg PO Q12HR #60 tablet 05/23/13 10/02/21 10/02/21 Rx Active Meds: Active Medications Acetaminophen (Acetaminophen 325 Mg Tab) 650 mg PO Q4H PRN PRN Reason: Pain MILD(1-3)/Fever >100.5/JUAN Aspirin (Aspirin 325 Mg Tab) 325 mg PO QDAY [facility] Last Admin: 10/04/21 09:55 Dose: 325 mg Clonidine HCl (Clonidine 0.2 Mg Tab) 0.2 mg PO BID [facility] Last Admin: 10/04/21 21:59 Dose: 0.2 mg Heparin Sodium (Porcine) (Heparin 5,000 Unit/1 Ml Vial) 5,000 unit SUB-Q Q12HR [facility] Last Admin: 10/04/21 22:00 Dose: 5,000 unit Hydromorphone HCl (Hydromorphone 0.5 Mg/0.5 Ml Inj) 0.5 mg IV Q3H PRN PRN Reason: Pain , Severe (7-10) Sodium Chloride (Nacl 0.9%) 100 mls @ 999 mls/hr IV PALLAVI PRN PRN Reason: Hypotension Insulin Human Isoph/Insulin Regular (Insulin Nph/Regular 70/30 Inj) 10 unit SUB-Q BIDDIAB [facility] Last Admin: 10/05/21 08:12 Dose: Not Given Insulin Human Lispro (Insulin Lispro 100 Unit/Ml) 0 unit SUB-Q ACHS [facility]; Protocol Last Admin: 10/05/21 08:12 Dose: Not Given Metoclopramide HCl (Metoclopramide 10 Mg/2 Ml Inj) 5 mg IV Q6H PRN PRN Reason: Nausea And Vomiting Metoprolol Tartrate (Metoprolol Tartrate 100 Mg Tab) 100 mg PO BID [facility] Last Admin: 10/04/21 21:59 Dose: 100 mg Morphine Sulfate (Morphine 2 Mg/1 Ml Inj) 2 mg IV Q4H PRN PRN Reason: Pain, Moderate (4-6) Nifedipine (Nifedipine Xl 60 Mg Tab) 60 mg PO Q12H [facility] Last Admin: 10/04/21 22:08 Dose: 60 mg Ondansetron HCl (Ondansetron 4 Mg/2 Ml Inj) 4 mg IV Q8H PRN PRN Reason: Nausea And Vomiting Oxycodone/Acetaminophen (Oxycodone /Acetaminophen 5-325mg Tab) 1 tab PO Q6H PRN PRN Reason: Pain, Moderate (4-6) Pravastatin Sodium (Pravastatin 40 Mg Tab) 40 mg PO QHS [facility] Last Admin: 10/04/21 21:59 Dose: 40 mg Sodium Chloride (Sodium Chloride 0.9% 10 Ml Flush Syringe) 10 ml IV BID [facility] Last Admin: 10/04/21 22:08 Dose: 10 ml Sodium Chloride (Sodium Chloride 0.9% 10 Ml Flush Syringe) 10 ml IV PRN PRN PRN Reason: LINE FLUSH Review of Systems All systems: negative Exam - Vital Signs Vital signs: Vital Signs Temp Pulse Resp BP Pulse Ox 97.6 F 78 16 179/86 100 10/02/21 12:29 10/02/21 12:29 10/02/21 12:29 10/02/21 12:29 10/02/21 12:29 - General Appearance General appearance: well-developed EENT: ATNC Respiratory: Clear to Ascultation Heart: regular, S1S2 Gastrointestinal: Present: normal. Absent: tenderness, distended Integumentary: no rash, warm and dry Neurologic: alert and oriented x3 Psychiatric: cooperative Results - Lab Results 10/03/21 04:20 10/03/21 04:20 Most recent lab results Calcium 8.8 mg/dL (8.4-10.2) 10/03/21 04:20 Assessment and Plan Impression: * End stage renal disease * Malfunctioning permcath * Type II DM Plan: * Hemodialysis today * UF as tolerated * Stable for discharge from a renal standpoint
--- NOTE | 2021-10-05 10:49 | Operative Report ---
Operative Report Operative Report: EXAM: 1. Fluoroscopic guided exchange of a right internal jugular tunneled cuffed hemodialysis catheter. 2. Superior venacava venography 3. SVC angioplasty and right innominate vein angioplasty with a 12 mm x 60 mm angioplasty balloon. DATE: 10/05/2021 INDICATION: End-stage renal disease with malfunctioning PermCath requiring exchange and further evaluation. MEDICATIONS: Please see nursing report for full details. MERCURY CRACKING TESTER: OSCAR GONZALEZ MD DEVICES: 27 cm tip to cuff 15 Fr dual lumen hemodialysis catheter ; existing catheter was a 23 cm tip to cuff dual lumen hemodialysis catheter CONTRAST: Please see Transformation Specialist report for full details. PROCEDURE: The risks, benefits, and alternatives were discussed and informed consent was obtained. The patient was transported to the angiography suite in satisfactory/stable condition and was transported onto the angiography table. The patient was prepped and draped in a sterile fashion. The existing PermCath was prepped and draped in a sterile fashion. Heparin was removed from the lumens and then saline was used to flush the lumens. A stiff angled Glidewire was advanced through one of the lumen of the existing PermCath lumens and into the IVC. Lidocaine was used to anesthetize the existing PermCath dermatotomy. Using a hemostat, blunt dissection was used to free the existing cuff. The catheter was partially retracted. Digital subtraction venography was performed through the other lumen. Over the 0.035 inch wire, the existing PermCath was removed and the wire was cleaned with ChloraPrep. A 8 Portuguese sheath was advanced over the wire. 12 mm x 60 mm angioplasty balloon was used to perform angioplasty of the SVC and part of the right innominate vein. Digital subtraction angiography was performed. The balloon was removed and the sheath was removed. Wires were again cleaned with ChloraPrep. A new PermCath was advanced over the wire and position centrally under fluoroscopic guidance. 2-0 Ethilon suture was used to secure the catheter at the dermatotomy. The catheter was charged with heparin 1000 units/mL of space. Sterile dressing and Biopatch applied. The patient was transferred from the angiography suite back to the floor in stable condition. FINDINGS: 1. Excellent flow was obtained through the dialysis catheter with 20 mL syringes. 2. The new catheter tip is in the right atrium. 3. Superior vena cava venography demonstrates severe narrowing of the SVC and right innominate vein. After angioplasty, there was mild residual narrowing in the right innominate vein with no residual narrowing in the SVC. IMPRESSION: 1. Successful fluoroscopic guided replacement of a right internal jugular tunneled cuffed hemodialysis catheter. 2. Successful angioplasty of the SVC and right innominate vein with a 12 mm x 60 mm angioplasty balloon.
[2021-10-05] MEDS: HEPARIN 5,000 UNIT/1 ML VIAL SUB-Q SCH (12:37)
[2021-10-05 14:12] LABS: Calcium 8.4 mg/dL (8.4-10.2)
[2021-10-05] MEDS: NIFEdipine XL 60 MG TAB PO SCH (14:22)
[2021-10-05] MEDS: cloNIDine 0.2 MG TAB PO SCH (14:22)
[2021-10-05] MEDS: METOPROLOL TARTRATE 100 MG TAB PO SCH (14:23)
[2021-10-05] MEDS: ASPIRIN 325 MG TAB PO SCH (14:23)
[2021-10-05 14:25] VITALS: BP 187/101
--- NOTE | 2021-10-05 15:29 | Discharge Summary ---
Providers - Providers Date of Admission: 10/02/21 20:57 Date of discharge: 10/05/21 Attending physician: YASHIRA JOSE MD 10/05/21 10:16 Consult to Physician [CONS] Routine Comment: Consulting Provider: RYLEE OLIVER Physician Instructions: Reason For Exam: dialysis Hospitalization Reason for admission: diaysis catheter malfunction Condition: Fair Hospital course: History of present illness (per admitting doctor): 50-year-old male well-known to me from the office previously comes in for nonfunctioning hemodialysis catheter. Patient had a small slow progression of his chronic kidney disease and ended up on dialysis recently around July. No AV fistula. AV fistula is being planned. Clinic presented for dialysis today patient was informed that the catheter was not working. No shortness of breath present. No chest pain. Patient history of uncontrolled hypertension and diabetes. Hospital Course: 10/03: Awaiting completion of permacath exchange. ok from my standpoint for d/c after procedure assuming no complications and functional catheter. Will follow vascular and nephrology plan. 10/04 Awaiting permacath exchange. Hypoglycemic episode noted, will decrease home 70/30 dosage. 10/05: Awaiting completion of permacath exchange. ok from my standpoint for d/c after procedure assuming no complications and functional catheter. Of note, he has not had dialysis since last Tuesday. Will follow vascular and nephrology plans. S/p new tunneled dialysis catheter, plan for discharge after dialysis tx. Advised to follow up w/ OP remedial masseur Dr. Oliver. Assessment and Plan: # Complication, dialysis catheter clot or failure Current Visit: Yes Status: Acute Plan to address problem: Patient to get the new dialysis catheter Vascular surgery consulted Nephrology consulted # End stage renal disease on dialysis Current Visit: No Status: Chronic Plan to address problem: Continue hemodialysis as per schedule Nephrology consulted No volume overload # Hypertension Current Visit: No Status: Chronic Qualifiers: Hypertension type: primary hypertension Qualified Code(s): I10 - Essential (primary) hypertension Plan to address problem: Continue antihypertensives and adjust medications as necessary # IDDM (insulin dependent diabetes mellitus) Current Visit: No Status: Chronic Plan to address problem: Continue home insulin and coverage Select hemoglobin A1c # Hyperlipidemia Current Visit: Yes Status: Chronic Qualifiers: Hyperlipidemia type: unspecified Qualified Code(s): E78.5 - Hyperlipidemia, unspecified Plan to address problem: Continue statins # Malnutrition Current Visit: Yes Status: Chronic Qualifiers: Protein-calorie malnutrition severity: mild Plan to address problem: Dietary supplements requested # DVT prophylaxis Current Visit: No Status: Acute Plan to address problem: On anticoagulation GI prophylaxis #Morbid Obesity + 15 min preventative health counseling on for balanced diet /regular exercise. #Advance care planning Disease education conducted, care plan discussed, diagnoses discussed, prognosis discussed, patient is full code, patient acknowledges understanding and agree with care plan, discussed about patient clinical course and answered all questions to satisfaction. +30 minutes. +30 minutes. Disposition: HOME / SELF CARE / HOMELESS Final Discharge Diagnosis (Prints w/discharge instructions): dialysis catheter malfunction Time spent for discharge: 35 Core Measure Documentation - Palliative Care Palliative Care/ Comfort Measures: Not Applicable - Core Measures Any of the following diagnoses?: none Exam - Physical Exam Narrative exam: Physical Exam: VITAL SIGNS: Reviewed. GENERAL: The patient appears normally developed, Vital signs as documented. HEAD: No signs of head trauma. EYES: Pupils are equal. Extraocular motions intact. EARS: Hearing grossly intact. MOUTH: Oropharynx is normal. NECK: No adenopathy, no JVD. CHEST: Chest with clear breath sounds bilaterally. No wheezes, rales, or rhonchi. CARDIAC: Regular rate and rhythm. S1 and S2, without murmurs, gallops, or rubs. VASCULAR: No Edema. Peripheral pulses normal and equal in all extremities. ABDOMEN: Soft, non tender and non distended. No rebound or guarding, and no masses palpated. Bowel Sounds normal. MUSCULOSKELETAL: Good range of motion of all major joints. Extremities without clubbing, cyanosis or edema. NEUROLOGIC EXAM: Alert and oriented x 4. no focal sensory or strength deficits. PSYCHIATRIC: Mood normal. SKIN: detail exam as documented in skin assessment - Constitutional Vitals: Temp Pulse Resp BP Pulse Ox 98.0 F 67 18 187/101 98 10/05/21 14:05 10/05/21 06:01 10/05/21 14:05 10/05/21 14:23 10/05/21 07:54 Plan Follow up with: ELLIS CHAUDHARY MD [Other] - 7 Days RYLEE OLIVER MD [Staff Physician] - 7 Days
[2021-10-05 16:18] LABS: Hepatitis B Surface Antigen Non-Reactive (Negative); Hepatitis C Virus Antibody Non-Reactive (NonReactive)
== END 2021-10-05 17:00 | disposition home or self-care (01) | DRG 981 ==
LOC: ED 12:24 → 3A 20:57
PROVIDERS: ADMIT Internal Medicine; ATTEND Internal Medicine
PROC: 05733ZZ Dilation of Right Innominate Vein, Percutaneous Approach (ICD-10-PCS; principal; 2021-10-05)
PROC: 027V3ZZ Dilation of Superior Vena Cava, Percutaneous Approach (ICD-10-PCS; 2021-10-05)
PROC: 02H633Z Insertion of Infusion Device into Right Atrium, Percutaneous Approach (ICD-10-PCS; 2021-10-05)
PROC: B548ZZA Ultrasonography of Superior Vena Cava, Guidance (ICD-10-PCS; 2021-10-05)
PROC: B5181ZZ Fluoroscopy of Superior Vena Cava using Low Osmolar Contrast (ICD-10-PCS; 2021-10-05)
PROC: 5A1D70Z Performance of Urinary Filtration, Intermittent, Less than 6 Hours Per Day (ICD-10-PCS; 2021-10-05)
DX: T82.41XA Breakdown (mechanical) of vascular dialysis catheter, initial encounter (principal); N18.6 End stage renal disease; E44.1 Mild protein-calorie malnutrition; Z68.41 Body mass index [BMI] 40.0-44.9, adult; I12.0 Hypertensive chronic kidney disease with stage 5 chronic kidney disease or end stage renal disease; E78.5 Hyperlipidemia, unspecified; E11.22 Type 2 diabetes mellitus with diabetic chronic kidney disease; E66.01 Morbid (severe) obesity due to excess calories; Y92.89 Other specified places as the place of occurrence of the external cause
CPT/HCPCS: 36415; 36581; 37248; 77001; 80048; 80053; 80074; 82962; 83036; 85025; 85610; G0378; J3490; Q0177; Q9967; C1725; C1750; C1769; C1894; J0690; J1644; J1815; J2250; J3010; J7050